=== PATIENT | female | born 1980 | race Caucasian/White ===

== ENCOUNTER 2016-11-24 14:44 | Emergency (ER) | payer OTHER ==
[2016-11-24 14:56] VITALS: BP 134/77
--- NOTE | 2016-11-24 16:26 | RAD ---
INDICATION: Persistent cough COMPARISON: November 29, 2013 TECHNIQUE: PA and lateral dual-energy views were obtained. FINDINGS: Bones/Soft Tissues: There are no acute bony findings. Cardiomediastinal: The cardiomediastinal silhouette is normal. Lungs: There are no infiltrates. Pleura: There are no pleural effusions. Other: None IMPRESSION: NORMAL CHEST.
--- NOTE | 2016-11-24 18:12 | UC ---
Respiratory Complaint HPI - HPI Summary HPI Summary: EIGHT WEEKS OF COUGH CONGESTION; NO FEVER - History of Current Complaint Chief Complaint: UCRespiratory Stated Complaint: COUGH Time Seen by Provider: 11/24/16 16:00 Hx Obtained From: Patient Hx Last Menstrual Period: 5 years, ablation Onset/Duration: Gradual Onset, Lasting Weeks, Still Present Timing: Intermittent Episodes Severity Initially: Mild Severity Currently: Mild Pain Intensity: 2 Character: Cough: Nonproductive Aggravating Factors: Allergens Alleviating Factors: Nothing Associated Signs And Symptoms: Positive: URI, Nasal Congestion. Negative: Fever , Chills, Dizziness, Calf Pain, Calf Swelling, Hoarseness, Sinus Discomfort - Risk Factors Pulmonary Embolism Risk Factors: Negative Pseudomonas Risk Factors: Negative Tuberculosis Risk Factors: Negative - Allergies/Home Medications Allergies/Adverse Reactions: Allergies Allergy/AdvReac Type Severity Reaction Status Date / Time No Known Allergies Allergy Verified 11/24/16 14:56 PMH/Surg Hx/FS Hx/Imm Hx Previously Healthy: Yes - Surgical History Surgical History: Yes Surgery Procedure, Year, and Place: , tubal ligation, uterine ablation - Family History Known Family History: Positive: Other - NONCONTRIBUTORY Negative: Hypertension, Diabetes - Social History Occupation: Employed Full-time Lives: With Family Alcohol Use: Rare Substance Use Type: None Smoking Status (MU): Heavy Every Day Tobacco Smoker Type: Cigarettes Amount Used/How Often: 1/2 ppd + Length of Time of Smoking/Using Tobacco: since 11 years old Have You Smoked in the Last Year: Yes Household Exposure Type: Cigarettes Cessation Counseling: Patient Advised to Stop - Immunization History Most Recent Influenza Vaccination: 2015/2016 Most Recent Pneumonia Vaccination: 2016 Review of Systems Constitutional: Negative Skin: Negative Eyes: Negative ENT: Nasal Discharge Respiratory: Cough Cardiovascular: Negative Gastrointestinal: Negative Genitourinary: Negative Motor: Negative Neurovascular: Negative Musculoskeletal: Negative Neurological: Negative Psychological: Negative All Other Systems Reviewed And Are Negative: Yes Physical Exam Triage Information Reviewed: Yes Appearance: No Pain Distress, Well-Nourished, Ill-Appearing Vital Signs: Initial Vital Signs Temp 98.9 F 11/24/16 14:55 Pulse 106 11/24/16 14:55 Resp 18 11/24/16 14:55 BP 134/77 11/24/16 14:55 Pulse Ox 99 11/24/16 14:55 Vital Signs Reviewed: Yes Eye Exam: Normal ENT: Positive: Hearing grossly normal, Pharynx normal, Nasal congestion, TM dull Dental Exam: Normal Neck exam: Normal Neck: Positive: Supple, Nontender, No Lymphadenopathy Respiratory Exam: Other - COUGH Respiratory: Positive: Chest non-tender, Lungs clear, Normal breath sounds, No respiratory distress Cardiovascular Exam: Normal Cardiovascular: Positive: RRR, No Murmur, Pulses Normal Abdominal Exam: Normal Musculoskeletal Exam: Normal Neurological Exam: Normal Psychological Exam: Normal Skin Exam: Normal UC Diagnostic Evaluation - Laboratory O2 Sat by Pulse Oximetry: 99 Respiratory Course/Dx - Differential Dx/Diagnosis Differential Diagnosis/HQI/PQRI: Bronchitis, Influenza, Sinusitis Provider Diagnoses: BRONCHITIS Discharge - Discharge Plan Condition: Stable Disposition: HOME Prescriptions: Benzonatate CAP* [Tessalon 100 MG CAP*] 100 mg PO TID #15 cap DOXYcycline CAP(*) [DOXYcycline 100MG CAP(*)] 100 mg PO BID #20 cap Patient Education Materials: Sinusitis (ED), Acute Bronchitis (ED) Forms: *Work Release Referrals: [facility]ERR[facility] [Outside] Navneet Lyon MD [Primary Care Provider] -
== END 2016-11-24 16:47 | disposition home or self-care (01) ==
LOC: UCEAST 14:44
DX: J40 Bronchitis, not specified as acute or chronic (principal); F17.210 Nicotine dependence, cigarettes, uncomplicated
CPT/HCPCS: 71020; 99212; G0463

== ENCOUNTER 2017-01-26 14:51 | Emergency (ER) | payer OTHER ==
[2017-01-26 15:23] VITALS: BP 90/71
[2017-01-26] MEDS ORDERED: Ibuprofen TAB* 600 MG PO ONE (16:06)
--- NOTE | 2017-01-26 16:23 | UC ---
Dental HPI - HPI Summary HPI Summary: 37 y/o female presents to the urgent care c/o left lower wisdom toothache since yesterday. Pt called dentist, but couldn't get an appt for today. Pt states her pain is 8/10 radiating to her LF ear with a TORO. she states she has a caries on that molar. Pt denies fever, SOB, chest pain , N/V/D - History of Current Complaint Chief Complaint: UCDentalProblem Stated Complaint: DENTAL COMPLAINT Time Seen by Provider: 01/26/17 16:06 Hx Obtained From: Patient Hx Last Menstrual Period: 5 years, ablation ?: No Onset/Duration: Gradual Onset, Lasting Days, Still Present Severity: Severe Pain Intensity: 9 Pain Scale Used: 0-10 Numeric Aggravating: Chewing Alleviating: OTC Meds Related History: Swelling - mild - Allergies/Home Medications Allergies/Adverse Reactions: Allergies Allergy/AdvReac Type Severity Reaction Status Date / Time No Known Allergies Allergy Verified 01/26/17 15:23 PMH/Surg Hx/FS Hx/Imm Hx Previously Healthy: Yes - Surgical History Surgical History: Yes Surgery Procedure, Year, and Place: , tubal ligation, uterine ablation - Family History Known Family History: Negative: Hypertension, Diabetes Family History: hypothyrodism - Social History Occupation: Employed Full-time Lives: With Family Alcohol Use: Rare Substance Use Type: None Smoking Status (MU): Heavy Every Day Tobacco Smoker Type: Cigarettes Amount Used/How Often: 1/2 ppd + Length of Time of Smoking/Using Tobacco: since 11 years old Have You Smoked in the Last Year: Yes Household Exposure Type: Cigarettes - Immunization History Most Recent Influenza Vaccination: 2015/2016 Most Recent Pneumonia Vaccination: 2016 Review of Systems Constitutional: Negative Skin: Negative Eyes: Negative ENT: Other - LF lower dental pain with a molar caries and left side facial swelling Respiratory: Negative Gastrointestinal: Negative Genitourinary: Negative Motor: Negative Neurovascular: Negative Musculoskeletal: Negative Neurological: Negative Psychological: Negative All Other Systems Reviewed And Are Negative: Yes Physical Exam Triage Information Reviewed: Yes Appearance: Well-Appearing, No Pain Distress, Well-Nourished, Thin Vital Signs: Initial Vital Signs Temp 99.9 F 01/26/17 15:20 Pulse 85 01/26/17 15:20 Resp 18 08/23/17 15:20 BP 90/71 01/26/17 15:20 Pulse Ox 99 01/26/17 15:20 Vital Signs Reviewed: Yes Eye Exam: Normal Eyes: Positive: Conjunctiva Clear - PERRLA, EOMI ENT: Positive: Normal ENT inspection, Hearing grossly normal, Pharynx normal, TMs normal, Other: - Poor dental hygiene. LF lower #17 molar with dental caries and yellowish drainage, percussion tenderness on that molar. LF sided submandibular swelling at the same level.LF anterior cervical lymphadenopaty tender and enlarged.. Negative: Tonsillar swelling, Tonsillar exudate Dental Complaint Course/Dx - Course Course Of Treatment: 37 y/o female presents to the urgent care c/o left lower wisdom toothache since yesterday. Pt called dentist, but couldn't get an appt for today. Pt states her pain is 8/10 radiating to her LF ear with a TORO. she states she has a caries on that molar. Pt denies fever, SOB, chest pain , N/V/ D. HX obtained. Pt given Ibuprofen 600mg PO at the clinic to alleviate pain and viscous lidocaine. Pt tolerated well medication. Pain decrese and Pt felt better. PE abnormal findings: Poor dental hygiene. LF lower #17 molar with dental caries and yellowish drainage, percussion tenderness on that molar. LF sided submandibular swelling at the same level.LF anterior cervical lymphadenopaty tender and enlarged. Pt Rx Amoxicillin PO and Naproxen PO to alleviate symptoms and advised to f/u with Dentist as soon as possible for further treatment. Pt understood and agreed - Differential Dx/Diagnosis Differential Diagnosis/Dx: Dental Abscess, Dental Caries, Gingivitis, Odontogenic Pain, Peridontic Disease, Pharyngitis, Tonsillitis Provider Diagnoses: 1- Dental abscess at the level of #17 molar with dental caries Discharge - Discharge Plan Condition: Stable Disposition: HOME Prescriptions: Amoxicillin PO (*) [Amoxicillin 875 MG (*)] 875 mg PO BID #20 tab Naproxen TAB* [Naprosyn 250 mg TAB*] 500 mg PO Q8H PRN #21 tab PRN Reason: Pain Patient Education Materials: Dental Abscess (ED) Referrals: Navneet Lyon MD [Primary Care Provider] - 2 Days Additional Instructions: 1-Please take full course of antibiotic to avoid resistance. 2- Take Naproxen as instructed after meals to alleviate pain and swelling. 3- F/u with your Dentist as soon as possible for further treatment. 4- If symptoms do not improve or worsen please return to the urgent care or f/u with your PCP for further evaluation and treatment
[2017-01-26] MEDS ORDERED: Lidocaine 2% VISCOUS* 15 ML UDC SWISH SPIT ONE ×2 (16:24→16:38)
== END 2017-01-26 16:48 | disposition home or self-care (01) ==
LOC: UCCORT 14:51
DX: K04.7 Periapical abscess without sinus (principal); K02.9 Dental caries, unspecified; F17.210 Nicotine dependence, cigarettes, uncomplicated
CPT/HCPCS: 99212; A9270-GY; G0463

== ENCOUNTER 2017-03-29 13:13 | Emergency (ER) | payer OTHER ==
[2017-03-29 13:53] LABS: Urine Bilirubin Negative (Negative); Urine Glucose Negative (Negative); Urine Nitrite Negative (Negative)
[2017-03-29 13:57] LABS: Hematocrit 40 % (35-47); Hemoglobin 13.7 g/dl (12.0-16.0); Mean Corpuscular HGB Conc 34 g/dl (31-36); Mean Corpuscular Hemoglobin 33 pg (27-31); Mean Corpuscular Volume 98 fL (80-97); Mean Platelet Volume 8 um3 (7.4-10.4); Red Blood Count 4.14 10^6/ul (4.0-5.4); Red Cell Distribution Width 12 % (10.5-15); White Blood Count 8.6 10^3/ul (3.5-10.8)
[2017-03-29 14:10] LABS: Benzodiazepine Urine Screen None Detected (None Detect)
[2017-03-29 14:12] LABS: ALT 11 U/L (7-52); AST 11 U/L (13-39); Albumin 4.4 g/dL (3.2-5.2); Alkaline Phosphatase 37 U/L (34-104); Anion Gap 5 mmol/L (2-11); Blood Urea Nitrogen 13 mg/dL (6-24); CO2 Carbon Dioxide 27 mmol/L (22-32); Calcium 9.5 mg/dL (8.6-10.3); Chloride 105 mmol/L (101-111); EGFR African American 87.2 (>60); EGFR Non-African American 67.8 (>60); Glucose 99 mg/dL (70-100); Potassium 3.5 mmol/L (3.5-5.0); Sodium 137 mmol/L (133-145); Total Protein 7.4 g/dL (6.4-8.9)
[2017-03-29 14:49] LABS: TSH (Thyroid Stimulating Horm) 1.89 mcIU/mL (0.34-5.60)
[2017-03-29 14:52] LABS: Acetaminophen < 15 mcg/mL; Alcohol < 10 mg/dL (<10); Salicylate < 2.50 mg/dL (<30)
[2017-03-29 16:12] VITALS: BP 109/64
[2017-03-29] MEDS ORDERED: Nicotine Inhaler* 10 MG AMP INH PRN (16:35)
[2017-03-29] MEDS ORDERED: Mouth Piece, Nicotine* 1 EACH CARTRIDGE INH PRN (16:35)
[2017-03-29] MEDS ORDERED: Mouth Piece, Nicotine* 1 EACH CARTRIDGE ONE (16:38)
[2017-03-29] MEDS ORDERED: Nicotine Inhaler* 10 MG AMP ONE (16:41)
--- NOTE | 2017-03-29 18:23 | ED ---
Geoffrey Beltran Benjamin, scribed for Chapincito Madera MD on 03/29/17 at 1331 . Psychiatric Complaint - HPI Summary HPI Summary: 37yo female sent from PCP for SI. Pt had her kids taken away 3 years ago and has been struggling since. Pt is not on any medications for depression. Pt admits prior attempt years ago, but denies attempts or plans this time. - History Of Current Complaint Chief Complaint: EDMentalHealth Time Seen by Provider: 03/29/17 13:21 Hx Obtained From: Patient Hx Last Menstrual Period: 5 years, ablation Onset/Duration: Gradual Onset, Lasting Days, Still Present Timing: Constant Severity Initially: Moderate Severity Currently: Moderate Character: Depressed Aggravating Factor(s): Recent Stress Alleviating Factor(s): Nothing Associated Signs And Symptoms: Positive: Negative Related History: Positive For: Prior Psychiatric Issues Has Suicidal: Reports: Thoughts. Denies: With A Plan Has Homicidal: Denies: Thoughts, With A Plan - Risk Factor(s) Completed Suicide Risk Factors: Past Suicide Attempt - Allergies/Home Medications Allergies/Adverse Reactions: Allergies Allergy/AdvReac Type Severity Reaction Status Date / Time No Known Allergies Allergy Verified 01/26/17 15:23 Home Medications: Home Medications NK [No Home Medications Reported] 03/29/17 [History Confirmed 03/29/17] PMH/Surg Hx/FS Hx/Imm Hx Endocrine/Hematology History: Denies: Hx Diabetes, Hx Sickle Cell Disease, Hx Thyroid Disease Cardiovascular History: Denies: Hx Congestive Heart Failure, Hx Hypertension, Other Cardiovascular Problems/Disorders Respiratory History: Denies: Hx Asthma, Hx Chronic Obstructive Pulmonary Disease (COPD), Other Respiratory Problems/Disorders GI History: Denies: Hx Ulcer, Other GI Disorders History: Reports: Hx Kidney Infection - IN THE PAST, Other Problems/ Disorders - FREQUENT UTI'S Denies: Hx Renal Disease Musculoskeletal History: Denies: Other Musculoskeletal History Sensory History: Denies: Hx Contacts or Glasses, Hx Hearing Aid Opthamlomology History: Denies: Hx Contacts or Glasses Neurological History: Reports: Hx Migraine - OCCASIONAL Denies: Other Neuro Impairments/Disorders - Surgical History Surgery Procedure, Year, and Place: , tubal ligation, uterine ablation Hx Anesthesia Reactions: No - Immunization History Date of Tetanus Vaccine: Unk Date of Influenza Vaccine: None Infectious Disease History: No Infectious Disease History: Denies: Hx Clostridium Difficile, Hx Hepatitis, Hx Human Immunodeficiency Virus (HIV), Hx of Known/Suspected MRSA, Hx Shingles, Hx Tuberculosis, Hx Known/ Suspected VRE, Hx Known/Suspected VRSA, History Other Infectious Disease, Traveled Outside the [place] in Last 30 Days - Family History Known Family History: Positive: Other - NONCONTRIBUTORY Negative: Hypertension, Diabetes Family History: hypothyrodism - Social History Lives: Alone Alcohol Use: Rare Substance Use Type: Reports: None Smoking Status (MU): Heavy Every Day Tobacco Smoker Type: Cigarettes Amount Used/How Often: 1/2 ppd + Length of Time of Smoking/Using Tobacco: since 11 years old Have You Smoked in the Last Year: Yes Review of Systems Constitutional: Negative Eyes: Negative ENT: Negative Cardiovascular: Negative Respiratory: Negative Gastrointestinal: Negative Genitourinary: Negative Musculoskeletal: Negative Skin: Negative Neurological: Negative Positive: Depressed All Other Systems Reviewed And Are Negative: Yes Physical Exam - Summary Physical Exam Summary: VITAL SIGNS: Reviewed. GENERAL: Patient is a well-developed and nourished female who is lying comfortable in the stretcher. Patient is not in any acute respiratory distress. HEAD AND FACE: No signs of trauma. No ecchymosis, hematomas or skull depressions. No sinus tenderness. EYES: PERRLA, EOMI x 2, No injected conjunctiva, no nystagmus. EARS: Hearing grossly intact. Ear canals and tympanic membranes are within normal limits. MOUTH: Oropharynx within normal limits. NECK: Supple, trachea is midline, no adenopathy, no JVD, no carotid bruit, no c- spine tenderness, neck with full ROM. CHEST: Symmetric, no tenderness at palpation LUNGS: Clear to auscultation bilaterally. No wheezing or crackles. CVS: Regular rate and rhythm, S1 and S2 present, no murmurs or gallops appreciated. ABDOMEN: Soft, non-tender. No signs of distention. No rebound no guarding, and no masses palpated. Bowel sounds are normal. EXTREMITIES: FROM in all major joints, no edema, no cyanosis or clubbing. NEURO: Alert and oriented x 3. No acute neurological deficits. Speech is normal and follows commands. SKIN: Dry and warm Depressed, quiet, and denies any suicidal thoughts or plan. Tearful. No homicidal thoughts or plan. No signs of psychosis or pressure speech. No tangential speech. Triage Information Reviewed: Yes Vital Signs On Initial Exam: Initial Vitals Temp Pulse Resp BP Pulse Ox 99.0 F 87 14 127/88 99 03/29/17 13:19 03/29/17 13:19 03/29/17 13:19 03/29/17 13:19 03/29/17 13:19 Vital Signs Reviewed: Yes - [place] Coma Scale Coma Scale Total: 15 Diagnostics - Vital Signs Vital Signs Temp Pulse Resp BP Pulse Ox 03/29/17 13:19 99.0 F 87 14 127/88 99 - Laboratory Lab Results: Lab Results 03/29/17 03/29/17 03/29/17 Range/Units 13:29 13:29 13:46 WBC (3.5-10.8) 10^3/ul RBC (4.0-5.4) 10^6/ul Hgb (12.0-16.0) g/dl Hct (35-47) % MCV (80-97) fL MCH (27-31) pg MCHC (31-36) g/dl RDW (10.5-15) % Plt Count (150-450) 10^3/ul MPV (7.4-10.4) um3 Neut % (Auto) (38-83) % Lymph % (Auto) (25-47) % [place] % (Auto) (1-9) % Eos % (Auto) (0-6) % Baso % (Auto) (0-2) % Absolute Neuts (auto) (1.5-7.7) 10^3/ul Absolute Lymphs (auto) (1.0-4.8) 10^3/ul Absolute Monos (auto) (0-0.8) 10^3/ul Absolute Eos (auto) (0-0.6) 10^3/ul Absolute Basos (auto) (0-0.2) 10^3/ul Absolute Nucleated RBC 10^3/ul Nucleated RBC % Sodium 137 (133-145) mmol/L Potassium 3.5 (3.5-5.0) mmol/L Chloride 105 (101-111) mmol/L Carbon Dioxide 27 (22-32) mmol/L Anion Gap 5 (2-11) mmol/L BUN 13 (6-24) mg/dL Creatinine 0.93 (0.51-0.95) mg/dL Est GFR ( Amer) 87.2 (>60) Est GFR (Non-Af Amer) 67.8 (>60) BUN/Creatinine Ratio 14.0 (8-20) Glucose 99 (70-100) mg/dL Calcium 9.5 (8.6-10.3) mg/dL Total Bilirubin 0.40 (0.2-1.0) mg/dL AST 11 L (13-39) U/L ALT 11 (7-52) U/L Alkaline Phosphatase 37 (34-104) U/L Total Protein 7.4 (6.4-8.9) g/dL Albumin 4.4 (3.2-5.2) g/dL Globulin 3.0 (2-4) g/dL Albumin/Globulin Ratio 1.5 (1-3) TSH 1.89 (0.34-5.60) mcIU/mL Urine Color Yellow Urine Appearance Clear Urine pH 6.0 (5-9) Ur Specific Merrick 1.013 (1.010-1.030) Urine Protein Negative (Negative) Urine Ketones Negative (Negative) Urine Blood Negative (Negative) Urine Nitrate Negative (Negative) Urine Bilirubin Negative (Negative) Urine Urobilinogen Negative (Negative) Ur Leukocyte Esterase Negative (Negative) Urine Glucose Negative (Negative) Salicylates < 2.50 (<30) mg/dL Urine Opiates Screen None detected (None Detect) Acetaminophen < 15 mcg/mL Ur Barbiturates Screen None detected (None Detect) Ur Phencyclidine Scrn None detected (None Detect) Ur Amphetamines Screen None detected (None Detect) U Benzodiazepines Scrn None detected (None Detect) Urine Cocaine Screen None detected (None Detect) U Cannabinoids Screen None detected (None Detect) Serum Alcohol < 10 (<10) mg/dL 03/29/ Range/Units 13:46 WBC 8.6 (3.5-10.8) 10^3/ul RBC 4.14 (4.0-5.4) 10^6/ul Hgb 13.7 (12.0-16.0) g/dl Hct 40 (35-47) % MCV 98 H (80-97) fL MCH 33 H (27-31) pg MCHC 34 (31-36) g/dl RDW 12 (10.5-15) % Plt Count 201 (150-450) 10^3/ul MPV 8 (7.4-10.4) um3 Neut % (Auto) 67.2 (38-83) % Lymph % (Auto) 24.9 L (25-47) % [place] % (Auto) 5.5 (1-9) % Eos % (Auto) 1.1 (0-6) % Baso % (Auto) 1.3 (0-2) % Absolute Neuts (auto) 5.7 (1.5-7.7) 10^3/ul Absolute Lymphs (auto) 2.1 (1.0-4.8) 10^3/ul Absolute Monos (auto) 0.5 (0-0.8) 10^3/ul Absolute Eos (auto) 0.1 (0-0.6) 10^3/ul Absolute Basos (auto) 0.1 (0-0.2) 10^3/ul Absolute Nucleated RBC 0 10^3/ul Nucleated RBC % 0 Sodium (133-145) mmol/L Potassium (3.5-5.0) mmol/L Chloride (101-111) mmol/L Carbon Dioxide (22-32) mmol/L Anion Gap (2-11) mmol/L BUN (6-24) mg/dL Creatinine (0.51-0.95) mg/dL Est GFR ( Amer) (>60) Est GFR (Non-Af Amer) (>60) BUN/Creatinine Ratio (8-20) Glucose (70-100) mg/dL Calcium (8.6-10.3) mg/dL Total Bilirubin (0.2-1.0) mg/dL AST (13-39) U/L ALT (7-52) U/L Alkaline Phosphatase (34-104) U/L Total Protein (6.4-8.9) g/dL Albumin (3.2-5.2) g/dL Globulin (2-4) g/dL Albumin/Globulin Ratio (1-3) TSH (0.34-5.60) mcIU/mL Urine Color Urine Appearance Urine pH (5-9) Ur Specific Merrick (1.010-1.030) Urine Protein (Negative) Urine Ketones (Negative) Urine Blood (Negative) Urine Nitrate (Negative) Urine Bilirubin (Negative) Urine Urobilinogen (Negative) Ur Leukocyte Esterase (Negative) Urine Glucose (Negative) Salicylates (<30) mg/dL Urine Opiates Screen (None Detect) Acetaminophen mcg/mL Ur Barbiturates Screen (None Detect) Ur Phencyclidine Scrn (None Detect) Ur Amphetamines Screen (None Detect) U Benzodiazepines Scrn (None Detect) Urine Cocaine Screen (None Detect) U Cannabinoids Screen (None Detect) Serum Alcohol (<10) mg/dL Result Diagrams: 03/29/17 13:46 03/29/17 13:46 Lab Statement: Any lab studies that have been ordered have been reviewed, and results considered in the medical decision making process. Course/Dx - Course Course Of Treatment: Pt is medically cleared for MHE at 1432 hour. Assessment/Plan: All blood work WNL. He is medically cleared. He is awaiting for a MHE. Patient is hemodynamically stable and A+O x 3. Sign to next ED Atending for further assestment. - Differential Dx/Clinical Impression Differential Diagnosis/HQI/PQRI: Positive: Anxiety, Depression, Suicidal Gesture Provider Diagnosis: Depression Discharge - Discharge Plan Condition: Stable Disposition: OTHER Discharge Disposition Comment: Signed out to shift change The documentation as recorded by the Geoffrey mckenzie Benjamin accurately reflects the service I personally performed and the decisions made by , Chapincito Madera MD.
--- NOTE | 2017-03-29 19:56 | ED ---
Progress - Progress Note Progress Note: pt cleared by mental health conservation officer, will be given insturctions for outpatient fu. - Consult/PCP Time Called: 15:00 Course/Dx - Course Course Of Treatment: Pt is medically cleared for MHE at 1432 hour. - Diagnoses Provider Diagnoses: Depression
== END 2017-03-29 20:25 | disposition home or self-care (01) ==
LOC: ED 13:13
DX: F32.9 Major depressive disorder, single episode, unspecified (principal)
CPT/HCPCS: 36415; 80053; 80307; 80320; 80329; 81003; 84443; 85025; 99283; A9270-GY; G0480

== ENCOUNTER 2017-03-30 14:43 | Emergency (ER) | payer OTHER ==
[2017-03-30 15:08] VITALS: BP 116/82
--- NOTE | 2017-03-30 16:08 | UC ---
Abdominal Pain Female HPI - HPI Summary HPI Summary: she has had similar abd pain for the past 3 years. she has not received any help or GI consultation. This past week it has been worse. She has diffuse lower abd pain and points to the periumbilical areas and lacey lower quadrants. She has had bloading and cramping as well but she has been eating well and has not had vomiting, diarrhea or blood in stool. no fever. No urinary or vaginal symptoms like discharge or pain with intercourse. - History of Current Complaint Chief Complaint: UCAbdominalPain Stated Complaint: STOMACH ACHE Time Seen by Provider: 03/30/17 15:48 Hx Obtained From: Patient Hx Last Menstrual Period: unknown, urterine ablation 5 years ago ?: No Onset/Duration: Gradual Onset, Lasting Weeks, Still Present Timing: Constant Severity Initially: Moderate Severity Currently: Moderate Location: Diffuse Radiates: No Character: Aching, Cramping Aggravating Factor(s): Other: - it was worse during a stressful job interview yesterday. Alleviating Factor(s): Nothing Associated Signs and Symptoms: Positive: Negative Allergies/Adverse Reactions: Allergies Allergy/AdvReac Type Severity Reaction Status Date / Time No Known Allergies Allergy Verified 03/30/17 15:08 PMH/Surg Hx/FS Hx/Imm Hx Previously Healthy: No - depression. - Surgical History Surgical History: Yes Surgery Procedure, Year, and Place: , tubal ligation, uterine ablation - Family History Known Family History: Positive: Other - NONCONTRIBUTORY Negative: Hypertension, Diabetes Family History: hypothyrodism - Social History Alcohol Use: None Substance Use Type: None Smoking Status (MU): Heavy Every Day Tobacco Smoker Type: Cigarettes Amount Used/How Often: 1/2 ppd + Length of Time of Smoking/Using Tobacco: since 11 years old Have You Smoked in the Last Year: Yes Household Exposure Type: Cigarettes - Immunization History Most Recent Influenza Vaccination: no Most Recent Pneumonia Vaccination: 2016 Review of Systems Gastrointestinal: Abdominal Pain All Other Systems Reviewed And Are Negative: Yes Physical Exam Triage Information Reviewed: Yes Appearance: Well-Appearing, No Pain Distress, Well-Nourished Vital Signs: Initial Vital Signs Temp 98 F 03/30/17 15:02 Pulse 87 03/30/17 15:02 Resp 16 03/30/17 15:02 BP 116/82 03/30/17 15:02 Pulse Ox 100 03/30/17 15:02 Vital Signs Reviewed: Yes Eyes: Positive: Conjunctiva Clear ENT: Positive: Normal ENT inspection, Pharynx normal. Negative: Trismus Neck exam: Normal Neck: Positive: Supple, Nontender, No Lymphadenopathy Respiratory Exam: Normal Respiratory: Positive: Chest non-tender, Lungs clear, Normal breath sounds, No respiratory distress, No accessory muscle use Cardiovascular Exam: Normal Cardiovascular: Positive: RRR, No Murmur, Pulses Normal, Brisk Capillary Refill Abdomen Description: Positive: No Organomegaly, Soft, Distended - periumbilical distension. there is diffuse tenderness of the lower abd and ruq. neg kelley's. No rebound., McBurney's Point Tenderness, Other: - neg psoas.. Negative: CVA Tenderness (R), CVA Tenderness (L), Peritoneal Signs Musculoskeletal Exam: Normal Musculoskeletal: Positive: Strength Intact, ROM Intact, No Edema Neurological Exam: Normal Neurological: Positive: Alert, Muscle Tone Normal Psychological Exam: Normal Skin: Negative: rashes Abd Pain Female Course/Dx - Course Course Of Treatment: this has been similar in pain and location as the prior 3 years. she believe is it is irriatable bowel and a lot ofthe features do seem consistent. This past week it has been worse but no worrisome signs such as fever, loss of appetite. the tenderness is diffuse. she agrees to return tomorrow if it worsens so that we may do a ct scan. She would like GI referral but wants to remain in [place] for this. - Differential Dx/Diagnosis Differential Diagnosis: Appendicitis, Bowel Obstruction, Diverticulitis, Irritable Bowel Syndrome, Pancreatitis, Pelvic Inflammatory Disease, Peptic Ulcer Disease, Pneumonia, Urinary Tract Infection Provider Diagnoses: abd pain. possible gi. Discharge - Discharge Plan Condition: Good Disposition: HOME Prescriptions: Dicyclomine CAP* [Bentyl CAP*] 10 mg PO TID PRN #20 cap PRN Reason: Pain Patient Education Materials: Abdominal Pain (ED), Chronic Abdominal Pain (ED) Referrals: Robert Kearney MD [Medical Doctor] - 1 Day Navneet Lyon MD [Primary Care Provider] - 1 Week Additional Instructions: return here immediately as we discussed for any worsening or new symptoms.
== END 2017-03-30 16:15 | disposition home or self-care (01) ==
LOC: UCCORT 14:43
DX: R10.30 Lower abdominal pain, unspecified (principal); Z32.02 Encounter for pregnancy test, result negative; F17.210 Nicotine dependence, cigarettes, uncomplicated
CPT/HCPCS: 81003; 84702; 99212; G0463

== ENCOUNTER 2017-05-28 14:46 | Emergency (ER) | payer OTHER ==
[2017-05-28 15:18] VITALS: BP 108/68
--- NOTE | 2017-05-28 15:24 | UC ---
Complaint Female HPI - HPI Summary HPI Summary: 37 year old female presents with foul smelling discharge. - History Of Current Complaint Chief Complaint: UCGU Stated Complaint: URINARY Time Seen by Provider: 05/28/17 15:23 Hx Obtained From: Patient Hx Last Menstrual Period: Unknown, uternine ablation Onset/Duration: Sudden Onset Timing: Constant Severity Initially: Moderate Severity Currently: Moderate - Allergies/Home Medications Allergies/Adverse Reactions: Allergies Allergy/AdvReac Type Severity Reaction Status Date / Time No Known Allergies Allergy Verified 05/28/17 15:18 Home Medications: Home Medications FLUoxetine CAP* [PROzac CAP*] 20 mg PO DAILY 05/28/17 [History Confirmed ] PMH/Surg Hx/FS Hx/Imm Hx Previously Healthy: Yes - Surgical History Surgical History: Yes Surgery Procedure, Year, and Place: , tubal ligation, uterine ablation - Family History Known Family History: Positive: Other - NONCONTRIBUTORY Negative: Hypertension, Diabetes Family History: hypothyrodism - Social History Alcohol Use: None Substance Use Type: None Smoking Status (MU): Heavy Every Day Tobacco Smoker Type: Cigarettes Amount Used/How Often: 1/2 ppd + Length of Time of Smoking/Using Tobacco: since 11 years old Have You Smoked in the Last Year: Yes Household Exposure Type: Cigarettes - Immunization History Most Recent Influenza Vaccination: no Most Recent Pneumonia Vaccination: 2016 Review of Systems Constitutional: Negative Skin: Negative Eyes: Negative ENT: Negative Respiratory: Negative Cardiovascular: Negative Gastrointestinal: Negative Genitourinary: Vaginal/Penile Discharge Motor: Negative Neurovascular: Negative Musculoskeletal: Negative Neurological: Negative Psychological: Negative All Other Systems Reviewed And Are Negative: Yes Physical Exam Triage Information Reviewed: Yes Vital Signs: Initial Vital Signs Temp 37.1 C 05/28/17 15:14 Pulse 98 05/28/17 15:14 Resp 16 05/28/17 15:14 BP 108/68 05/28/17 15:14 Pulse Ox 97 05/28/17 15:14 Vital Signs Reviewed: Yes Eye Exam: Normal ENT Exam: Normal ENT: Positive: Nasal drainage Dental Exam: Normal Neck exam: Normal Neck: Positive: 1 Respiratory Exam: Normal Cardiovascular Exam: Normal Abdominal Exam: Normal Musculoskeletal Exam: Normal Neurological Exam: Normal Psychological Exam: Normal Skin Exam: Normal Complaint Female Dx - Differential Dx/Diagnosis Provider Diagnoses: foul vaginal discharge Discharge - Discharge Plan Condition: Stable Disposition: HOME Prescriptions: Metronidazole [Flagyl 500 MG TAB] 500 mg PO BID #14 tab Sulfamethox/Trimethoprim DS* [Bactrim DS 800/160 TAB*] 1 tab PO BID #10 tab Patient Education Materials: Dysuria (ED), Vaginal Discharge (ED) Referrals: Ruiz Smith, [employer] [Primary Care Provider] -
--- NOTE | 2017-05-31 07:46 | UC ---
Progress - Progress Note Progress Note: Notify pt NO UTI she can STOP antibiotic(especially if she has already had 6 doses) and get rechecked if still symptomatic
== END 2017-05-28 15:48 | disposition home or self-care (01) ==
LOC: UCCORT 14:46
DX: N89.8 Other specified noninflammatory disorders of vagina (principal); Z72.0 Tobacco use
CPT/HCPCS: 81003; 87086; 99212; G0463

== ENCOUNTER 2018-01-26 11:49 | Emergency (ER) | payer OTHER ==
--- OUTSIDE RECORDS SUMMARY | 2018-01-26 11:58 | XMS REPORT ---
:1980 External Reference #:[id number] Author Organization [facility] Address [address] [place] [address] Phone [phone] Care Team Providers Name Role Phone Phil Lyon MD Primary Care Physician Unavailable Payers Type Date Identification Numbers Payment Provider Subscriber Commercial Effective: Policy Number: [id number] [facility] Rodriges 2008 Expires: 2014 PayID: [id number] [address] [address] [place] [address] Commercial Policy Number: [id number] [facility] Benita Rodriges PayID: [id number] [address] [address] [place] [address] Problems Date Description Provider Status Onset: 07/03/2012 Nonspecific abdominal symptom Jonnie Black M.D. Active Onset: 07/03/2012 Excessive and frequent menstruation Jonnie Black M.D. Active Onset: 09/13/2012 Wrist joint pain Active Family History Date Family Member(s) Problem(s) Comments General Endometriosis Father A&W Mother Diabetes Borderline Mother Graves Disease Mother Hypertension Number of Children 4 First Son A&W Second Son ADHD (Attention Deficit/Hyperactivity Disorder) Third Son A&W First Daughter A&W Number of Siblings Siblings: 2 First Brother A&W Second Brother A&W Paternal Grandfather A&W Paternal Grandmother due to Unknown Causes () Maternal Grandfather due to Heart Disease () Maternal Grandmother Heart Disease Maternal Grandmother Deep Vein Thrombosis Maternal Grandmother pacemaker Social History Type Date Description Comments Education Highest level of education completed is 10th grade Marital Status Patient is Living Situation Lives with spouse. Son is living with his father, moved to [place]. Has shared custody of daughter. 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 Cigarette Use Current cigarette smoker, has smoked 1/2 pack a day for the past 20 years Alcohol Denies alcohol use Smoking Patient is a current smoker, smokes every day Drug Use Denies drug use Daily Caffeine Drinks on average 5 cups of coffee a day Exercise Type/Frequency Current Exercises regularly Seat Belt/Car Seat Always uses a seat belt Currently Active The patient is currently sexually active Contraceptive Methods Current methods of control used include tubal ligation Allergies, Adverse Reactions, Alerts Date Description Reaction Status Severity Comments 11/28/2015 NKDA active 08/07/2008 NKDA inactive Medications Medication Date Status Form Strength Qnty SIG Indications Ordering Provider Ibuprofen 04/15 Active Tablets 600mg 30tab 1 tab by [id number] s mouth three Roxann times a day MD as needed Prozac Active 40mg Unknown / Dicyclomine Active Unknown HCL / Flagyl 02/16 Hx Tablets 500mg 14tab 1 by mouth Mahrie /2015 s two times Jacob, - per day x 7 CNM Hydrocodone-Ac 11/27 Hx Tablets 5-325mg 45tab 1 by mouth Jonnie Uriostegui etaminophen s every 4 Gelber, - hours as M.D. 03/03 Norethindrone 11/27 Hx Tablets 5mg 90tab 1 by mouth Jonnie Uriostegui Acetate s every day x2 Gelber, - weeks then M.D. 10/08 increase by 2.5 mg every 2 weeks to a dose of 15 mg / day Motrin 11/17 Hx Tablets 600mg 30tab Q6H prn For s Pain Repack - 11/27 No Active 06/10 Hx Unknown Medications /2015 - 06/10 Metrogel-Vagin 06/10 Hx Gel 0.75% 1TX 1 applicator N76.0 Obdulia every night Jump, - at bedtime x ANP-C 06/15 5 Lupron Depot 12/31 Hx Kit 3.75mg 3mos intramuscula Jonnie Uriostegui r every Gelber, - month,to M.D. 06/10 bring to office for injection Lupron Depot 12/31 Hx Kit 3.75mg 3mos intramuscula 617.1 Jonnie Uriostegui r every Gelber, - month,to M.D. 06/10 bring to office for injection Oxecta 12/13 Hx Taba 5mg 180ta 1-2 tabs by bs mouth q 6 - hours as 06/10 needed for pain Metronidazole 12/13 Hx Tablets 500mg 14tab 1 tab PO Bid s x 7 days - 06/10 Oxycodone HCL 12/12 Hx Tab ER 12H 20mg 60tab 1 tab q12 620.2 Unknown Abuse-Det s hours as - needed pian 06/10 Metrogel-Vagin 05/09 Hx Gel 0.75% 1TX 1 applicator Obdulia al every night Jump, - at bedtime x ANP-C 05/14 No Active 05/07 Hx Unknown Medications - 05/09 Metrogel-Vagin 03/05 Hx Gel 0.75% 1TX 1 applicator 616.10 Obdulia every night Jump, - at bedtime x ANP-C 03/09 Flagyl 12/31 Hx Tablets 500mg 14tab 1 by mouth Tori s twice a day Jagdeep, - x 7 days 01/07 Diflucan 12/19 Hx Tablets 150mg 2tabs take 1 tab. Jonnie A. now, if Wayne, - signs/sympto M.D. 12/26 ms not resolved in 72 hours, repeat dose No Active 05/01 Hx Dennise Medications /2012 Maximino, [employer] - 12/19 Diflucan 10/05 Hx Tablets 150mg 2tabs take 1 tab. Jonnie A. now, if Wayne, - signs/sympto M.D. 12/03 ms not resolved in 72 hours, repeat dose No Active 09/04 Hx Unknown Medications /2012 - 10/05 Percocet 07/03 Hx 5-325mg 20uni 1 po q 6hrs V72.83 Jonnie Uriostegui ts as needed Gelber, - for pain M.D. 08/04 Motrin 07/03 Hx Tablets 600mg 30tab take one V72.83 Jonnie A. s tablet q6h Gelber, - prn pain M.D. 08/04 Naproxen Ec 06/[address] 500mg 30tab 1 tab bid Jonnie A. s prn pain Gelber, - M.D. 05/17 Diflucan 02/15 Hx Tablets 150mg 1tabs 1 po times 1 Jonnie A. day, repeat Gelber, - in 3 days if M.D. 06/11 Loestrin 09/02 Hx Tablets 1-20mg-mc 1Pack 1 PO qd Jonnie A. 06/25- g Wayne, - M.D. 09/09 Fluconazole 06/21 Hx Tablets 150mg 2tabs 1 by mouth, Christy Zuñiga repeat in 3 Daniel, - days if CNM 07/06 Flintstones 06/21 Hx Chewtabs 2 by mouth Christy Zuñiga Gummies daily Daniel, - CNM 07/06 Amoxicillin 06/11 Hx Capsules 500mg 28cap po bid 10- Christy EЕлена s days Daniel, - CNM 07/06 Keflex 04/22 Hx Capsules 500mg 21cap 1 po tid Obdulia delvin Pedroza, - ANP-C 04/29 1 04/19 Hx Capsules 30-0.975- 90cap 1 po qd Jonnie A. 200mg s Wayne, - M.D. 06/30 Macrobid 12/03 Hx Capsules 100mg 6caps take one Melida M. capsule each Walsh, - morning and M.D. 01/03 each bedtime Flagyl 11/13 Hx Tablets 250mg 21tab 1 po tid Obdulia delvin Pedroza, - ANP-C 11/20 Ortho-Tri 11/05 Hx Tablets 3Pack 1 po qd Tori Cyclen Alexsander Mcclellan MD 04/19 Percocet 10/04 Hx 5-325mg 20uni 1 po q 6hrs V72.83 Jonnie A. ts as needed Gelber, - for pain M.D. 01/03 Motrin 10/04 Hx 600mg 30uni take one V72.83 Jonnie A. /2008 ts tablet q6h Gelber, - prn pain M.D. 04/19 Terazol 7 09/17 Hx Cream 0.4% 1unit 1 Obdulia s application Jump, - per vagina ANP-C 09/24 hs x Monistat 7 09/03 Hx Suppository 100mg Mumtaz /2008 Jair, - M.D. 09/17 Ferrous 08/20 Hx Tablets 325mg 100ta 1 po bid Maria Fernanda Sulfate bs Ricardo, - CNM 04/19 08/07 Hx Tablets 90tab 1 po qd Michela delvin Langford - [employer], [facility] 04/19 Monistat 3 08/07 Hx Cream 200mg/5GM 3appl one applicator Anastasiya - vaginally [employer], [facility] 01/03 at bedtime 3 nights Ibuprofen 00/00 Hx Unknown /0000 - 06/30 Junel 1.11/02 00/00 Hx Unknown /0000 - 10/11 Percocet 00/00 Hx Unknown /0000 - 06/10 Sulfamethoxazo Hx Tablets 800-160mg 10tab 1 po bid Jonnie ricci/Trimethopri /0000 ben Contreras - M.D. 06/10 Hydrocodone-Ac Hx Tablets 5-325mg Piyush Mathew etaminophen /0000 ry - 11/27 Immunizations CPT Code Status Date Vaccine Lot # [id number] Given 09/13/2012 Tetnus, Diptheria Toxoids And Acellular Pertussis, PT > 7Yrs Old [id number] Given 06/07/2011 Influenza Virus Vaccine 3Years Or Older Vital Signs Date Vital Result Comment 01/02/2018 BP Systolic 122 mmHg BP Diastolic 76 mmHg Height 65 inches 5'5" Weight 132.00 lb BMI (Body Mass Index) 22.0 kg/m2 5 Parity 4 11/08/2017 BP Systolic 118 mmHg BP Diastolic 72 mmHg Height 65 inches 5'5" Weight 133.00 lb BMI (Body Mass Index) 22.1 kg/m2 Last Menstrual Period [id number] 5 Parity 4 11/28/2015 BP Systolic 110 mmHg BP Diastolic 70 mmHg Height 65 inches 5'5" Weight 141.00 lb BMI (Body Mass Index) 23.5 kg/m2 Last Menstrual Period 9897182 5 Parity 4 11/18/2015 BP Systolic 100 mmHg BP Diastolic 76 mmHg Body Temperature 97.5 F Heart Rate 76 /min Respiratory Rate 16 /min Height 65 inches Weight 125.00 lb 10/01/2015 BP Systolic 116 mmHg BP Diastolic 78 mmHg Body Temperature 97.3 F Heart Rate 90 /min Weight 144.00 lb 07/01/2015 BP Systolic 112 mmHg BP Diastolic 70 mmHg Height 65.25 inches 5'5.25" Weight 140.00 lb BMI (Body Mass Index) 23.1 kg/m2 5 Parity 4 06/10/2015 BP Systolic 116 mmHg BP Diastolic 62 mmHg Height 65.25 inches 5'5.25" Weight 140.00 lb BMI (Body Mass Index) 23.1 kg/m2 Last Menstrual Period 9452903 5 Parity 4 04/15/2015 BP Systolic 118 mmHg BP Diastolic 66 mmHg Body Temperature 97.2 F Heart Rate 87 /min Weight 139.00 lb 01/20/2015 BP Systolic 102 mmHg BP Diastolic 62 mmHg Body Temperature 98.0 F Heart Rate 100 /min Weight 138.25 lb 12/31/2014 BP Systolic 124 mmHg BP Diastolic 82 mmHg Height 65.25 inches 5'5.25" Weight 137.00 lb BMI (Body Mass Index) 22.6 kg/m2 Last Menstrual Period 9133918 5 Parity 4 12/12/2014 BP Systolic 120 mmHg BP Diastolic 82 mmHg Body Temperature 97.7 F Heart Rate 115 /min Height 65.25 inches Weight 135.75 lb BMI (Body Mass Index) 22.4 kg/m2 10/16/2014 BP Systolic 110 mmHg BP Diastolic 64 mmHg Body Temperature 97.1 F Heart Rate 81 /min Height 65.25 inches Weight 133.00 lb BMI (Body Mass Index) 22.0 kg/m2 05/13/2014 BP Systolic 122 mmHg BP Diastolic 82 mmHg Height 65 inches 5'5" Weight 130.00 lb BMI (Body Mass Index) 21.6 kg/m2 Last Menstrual Period 6133128 5 Parity 4 05/07/2014 BP Systolic 108 mmHg BP Diastolic 64 mmHg Height 65 inches 5'5" Weight 130.00 lb BMI (Body Mass Index) 21.6 kg/m2 Last Menstrual Period 2463633 5 Parity 4 03/05/2014 BP Systolic 100 mmHg BP Diastolic 82 mmHg Height 65 inches 5'5" Weight 130.00 lb BMI (Body Mass Index) 21.6 kg/m2 Last Menstrual Period 5982678 5 Parity 4 12/19/2013 BP Systolic 126 mmHg BP Diastolic 66 mmHg Height 65 inches 5'5" Weight 128.00 lb BMI (Body Mass Index) 21.3 kg/m2 Last Menstrual Period 1887732 5 Parity 4 05/01/2013 BP Systolic 104 mmHg BP Diastolic 62 mmHg Height 65 inches 5'5" Weight 137.00 lb BMI (Body Mass Index) 22.8 kg/m2 5 Parity 4 12/25/2012 BP Systolic 104 mmHg BP Diastolic 68 mmHg Body Temperature 97.8 F Heart Rate 92 /min Weight 134.00 lb 10/05/2012 BP Systolic 110 mmHg BP Diastolic 62 mmHg Height 65 inches 5'5" Weight 137.00 lb BMI (Body Mass Index) 22.8 kg/m2 5 Parity 5 09/04/2012 BP Systolic 114 mmHg BP Diastolic 70 mmHg Body Temperature 98.1 F Height 65 inches 5'5" Weight 141.00 lb BMI (Body Mass Index) 23.5 kg/m2 5 Parity 5 07/03/2012 BP Systolic 108 mmHg BP Diastolic 62 mmHg Body Temperature 98.1 F Heart Rate 76 /min Respiratory Rate 18 /min Height 65 inches 5'5" Weight 140.00 lb BMI (Body Mass Index) 23.3 kg/m2 Last Menstrual Period 6074456 5 Parity 5 06/13/2012 BP Systolic 118 mmHg BP Diastolic 66 mmHg Weight 140.00 lb 5 Parity 5 03/30/2012 BP Systolic 108 mmHg BP Diastolic 70 mmHg Height 65 inches 5'5" Weight 130.00 lb BMI (Body Mass Index) 21.6 kg/m2 02/16/2012 BP Systolic 110 mmHg BP Diastolic 72 mmHg Height 65 inches 5'5" Weight 128.00 lb BMI (Body Mass Index) 21.3 kg/m2 Last Menstrual Period 5029566 5 Parity 5 10/12/2011 BP Systolic 110 mmHg BP Diastolic 72 mmHg Body Temperature 98.4 F Height 65 inches 5'5" Weight 136.00 lb BMI (Body Mass Index) 22.6 kg/m2 Last Menstrual Period 6028695 5 Parity 5 09/10/2011 BP Systolic 112 mmHg BP Diastolic 62 mmHg Body Temperature 98.4 F Height 65 inches 5'5" Weight 136.00 lb BMI (Body Mass Index) 22.6 kg/m2 Last Menstrual Period 2179133 5 Parity 4 04/19/2011 BP Systolic 102 mmHg BP Diastolic 58 mmHg Height 65 inches 5'5" Weight 144.00 lb BMI (Body Mass Index) 24.0 kg/m2 Last Menstrual Period 6564576 5 Parity 3 11/27/2008 BP Systolic 106 mmHg BP Diastolic 70 mmHg Height 65.5 inches 5'5.50" Weight 135.00 lb BMI (Body Mass Index) 22.1 kg/m2 Last Menstrual Period 0 Bleeding Since 5-7 Vag Of Son 11/13/2008 BP Systolic 114 mmHg BP Diastolic 62 mmHg Height 65.5 inches 5'5.50" Weight 140.00 lb BMI (Body Mass Index) 22.9 kg/m2 Last Menstrual Period 0 11/05/2008 BP Systolic 104 mmHg BP Diastolic 62 mmHg Height 65.5 inches 5'5.50" Weight 139.00 lb BMI (Body Mass Index) 22.8 kg/m2 10/04/2008 BP Systolic 100 mmHg BP Diastolic 66 mmHg Body Temperature 98.0 F Heart Rate 96 /min Respiratory Rate 16 /min Height 65.5 inches 5'5.50" Weight 159.00 lb BMI (Body Mass Index) 26.1 kg/m2 Last Menstrual Period 0 4 Parity 2 08/07/2008 BP Systolic 110 mmHg BP Diastolic 60 mmHg Height 64 inches 5'4" Weight 163.00 lb BMI (Body Mass Index) 28.0 kg/m2 Last Menstrual Period [id number] Results Test Date Test Result H/L Range Note Laboratory test 11/08/2017 Cytology SEE RESULT LGSIL.+HPV 1 finding BELOW Laboratory test 10/01/2015 Test neg finding Urine Ua Routine 10/01/2015 Ua Appera clear Ua Bilirubin neg Ua Color dark yellow Ua Glucose neg Ua Ketones neg Ua Nitrite neg Ua Occult Blood neg Ua PH 6 Ua Protein neg Ua Specific Brayton 1.015 Ua Urobilinogen neg Ua WBC neg Laboratory test finding 06/10/2015 Culture Genital & SEE RESULT BELOW 2 Sensitivity Urinalysis Profile 04/26/2015 Urine Appearance Cloudy Urine Bilirubin Negative Negative Urine Blood Negative Negative Urine Color Yellow Urine Glucose Negative Negative Urine Ketones 1+ Negative Urine Leukocytes Negative Negative Urine Nitrite Negative Negative Urine Protein Negative Negative Urine Specific Brayton 1.025 1.010-1.030 Urine Urobilinogen Negative Negative Urine pH 5.0 5-9 Laboratory test finding 04/26/2015 Albumin 4.3 g/dL 3.2-5.2 Albumin/Globulin Ratio 1.7 1-3 Alkaline Phosphatase 33 U/L Low 34-104 Alt 9 U/L 7-52 Anion Gap 8 mmol/L 2-11 Ast 11 U/L Low 13-39 BUN/Creatinine Ratio 13.2 8-20 Blood Urea Nitrogen 12 mg/dL 6-24 C Reactive Protein < 1.00 mg/L < 5.00 Calcium 9.0 mg/dL 8.6-10.3 Chloride 103 mmol/L 101-111 Co2 Carbon Dioxide 22 mmol/L 22-32 Creatinine 0.91 mg/dL 0.51-0.95 Egfr 90.5 >60 Egfr Non- 70.4 >60 Globulin 2.6 g/dL 2-4 Glucose 83 mg/dL 70-100 HCG Qualitative Negative Negative Lactic Acid 0.6 mmol/L 0.5-2.2 Lipase 9 U/L Low 11.0-82.0 3 Potassium 3.2 mmol/L Low 3.5-5.0 Sodium 133 mmol/L 133-145 4 Total Bilirubin 0.50 mg/dL 0.2-1.0 Total Protein 6.9 g/dL 6.4-8.9 CBC Auto Diff 04/26/2015 Abs Basophils 0.1 10^3/uL 0-0.2 Abs Eosinophils 0.1 10^3/uL 0-0.6 Abs Lymphocytes 2.7 10^3/uL 1.0-4.8 Abs Monocytes 0.3 10^3/uL 0-0.8 Abs Neutrophils 3.4 10^3/uL 1.5-7.7 Abs Nucleated RBC 0.01 10^3/uL Basophil % 1.3 % 0-2 Eosinophil % 2.0 % 0-6 Granulocyte % 51.1 % 38-83 Hematocrit 37 % 35-47 Hemoglobin 12.6 g/dL 12.0-16.0 Lymphocyte % 40.5 % 25-47 Mean Corpuscular HGB Conc 34 g/dL 31-36 Mean Corpuscular Hemoglobin 33 pg High 27-31 Mean Corpuscular Volume 98 fL High 80-97 Mean Platelet Volume 8 um3 7.4-10.4 Monocyte % 5.1 % 1-9 Nucleated Red Blood Cells % 0.1 Platelet Count 195 10^3/uL 150-450 Red Blood Count 3.78 10^6/uL Low 4.0-5.4 Red Cell Distribution Width 12 % 10.5-15 White Blood Count 6.6 10^3/uL 4.8-10.8 Urinalysis Profile 04/22/2015 Urine Appearance Clear Urine Bilirubin Negative Negative Urine Blood Negative Negative Urine Color Yellow Urine Glucose Negative Negative Urine Ketones Negative Negative Urine Leukocytes Negative Negative Urine Nitrite Negative Negative Urine Protein Negative Negative Urine Specific Brayton 1.013 1.010-1.030 Urine Urobilinogen Negative Negative Urine pH 7.0 5-9 Inr/Protime 04/22/2015 Inr 0.94 0.89-1.11 5 CBC Auto Diff 04/22/2015 Abs Basophils 0.1 10^3/uL 0-0.2 Abs Eosinophils 0.1 10^3/uL 0-0.6 Abs Lymphocytes 1.8 10^3/uL 1.0-4.8 Abs Monocytes 0.3 10^3/uL 0-0.8 Abs Neutrophils 1.7 10^3/uL 1.5-7.7 Abs Nucleated RBC 0.01 10^3/uL Basophil % 1.6 % 0-2 Eosinophil % 3.4 % 0-6 Granulocyte % 42.6 % 38-83 Hematocrit 38 % 35-47 Hemoglobin 12.6 g/dL 12.0-16.0 Lymphocyte % 44.8 % 25-47 Mean Corpuscular HGB Conc 34 g/dL 31-36 Mean Corpuscular Hemoglobin 33 pg High 27-31 Mean Corpuscular Volume 98 fL High 80-97 Mean Platelet Volume 9 um3 7.4-10.4 Monocyte % 7.6 % 1-9 Nucleated Red Blood Cells % 0.2 Platelet Count 201 10^3/uL 150-450 Red Blood Count 3.83 10^6/uL Low 4.0-5.4 Red Cell Distribution Width 13 % 10.5-15 White Blood Count 4.0 10^3/uL Low 4.8-10.8 Laboratory test finding 04/22/2015 Albumin 4.1 g/dL 3.2-5.2 Albumin/Globulin Ratio 1.5 1-3 Alkaline Phosphatase 34 U/L 34-104 Alt 14 U/L 7-52 Anion Gap 5 mmol/L 2-11 Ast 13 U/L 13-39 BUN/Creatinine Ratio 12.8 8-20 Blood Urea Nitrogen 12 mg/dL 6-24 C Reactive Protein < 1.00 mg/L < 5.00 6 Calcium 9.2 mg/dL 8.6-10.3 Chloride 108 mmol/L 101-111 Co2 Carbon Dioxide 25 mmol/L 22-32 Creatinine 0.94 mg/dL 0.51-0.95 Egfr 87.2 >60 Egfr Non- 67.8 >60 Globulin 2.7 g/dL 2-4 Glucose 96 mg/dL 70-100 HCG Qualitative Negative Negative Lactic Acid 0.7 mmol/L 0.5-2.2 Partial Thrombo Time PTT 32.4 s 26.0-36.3 Potassium 4.0 mmol/L 3.5-5.0 Sodium 138 mmol/L 133-145 7 Total Bilirubin 0.40 mg/dL 0.2-1.0 Total Protein 6.8 g/dL 6.4-8.9 Laboratory test 12/12/2014 Gardnerella/Yeast: Vaginal See Result Below 8 finding Dna Urine Culture And Sensitivities See Result Below 9 Urinalysis Profile 12/12/2014 Urine Appearance Cloudy Urine Bilirubin Negative Negative Urine Blood Negative Negative Urine Color Yellow Urine Glucose Negative Negative Urine Ketones Negative Negative Urine Leukocytes Negative Negative Urine Nitrite Negative Negative Urine Protein Negative Negative Urine Specific Brayton 1.023 1.010-1.030 Urine Urobilinogen Positive Negative Urine pH 6.0 5-9 Laboratory test finding 12/07/2014 Albumin 4.4 g/dL 3.2-5.2 Albumin/Globulin Ratio 1.6 1-3 Alkaline Phosphatase 36 U/L 34-104 Alt 33 U/L 7-52 Anion Gap 3 mmol/L 2-11 Ast 20 U/L 13-39 BUN/Creatinine Ratio 13.0 8-20 Blood Urea Nitrogen 12 mg/dL 6-24 C Reactive Protein < 1.00 mg/L < 5.00 10 Calcium 9.3 mg/dL 8.6-10.3 Chloride 106 mmol/L 101-111 Co2 Carbon Dioxide 27 mmol/L 22-32 Creatinine 0.92 mg/dL 0.51-0.95 Egfr 89.9 >60 11 Egfr Non- 69.9 >60 Globulin 2.7 g/dL 2-4 Glucose 92 mg/dL 70-100 Lactic Acid 0.5 mmol/L 0.5-2.2 Lipase 16 U/L 11.0-82.0 Partial Thrombo Time PTT 31.4 s 26.0-36.3 Potassium 3.8 mmol/L 3.5-5.0 Serum Negative Negative Sodium 136 mmol/L 133-145 Total Bilirubin 0.40 mg/dL 0.2-1.0 Total Protein 7.1 g/dL 6.4-8.9 Urine Culture And Sensitivities See Result Below 12 CBC Auto Diff 12/07/2014 Abs Basophils 0.1 10^3/uL 0-0.2 Abs Eosinophils 0.1 10^3/uL 0-0.6 Abs Lymphocytes 2.3 10^3/uL 1.0-4.8 Abs Monocytes 0.4 10^3/uL 0-0.8 Abs Neutrophils 4.4 10^3/uL 1.5-7.7 Abs Nucleated RBC 0 10^3/uL Basophil % 1.1 % 0-2 Eosinophil % 1.4 % 0-6 Granulocyte % 60.5 % 38-83 Hematocrit 41 % 35-47 Hemoglobin 13.4 g/dL 12.0-16.0 Lymphocyte % 32.0 % 25-47 Mean Corpuscular HGB Conc 33 g/dL 31-36 Mean Corpuscular Hemoglobin 33 pg High 27-31 Mean Corpuscular Volume 99 fL High 80-97 Mean Platelet Volume 8 um3 7.4-10.4 Monocyte % 5.0 % 1-9 Nucleated Red Blood Cells % 0 Platelet Count 217 10^3/uL 150-450 Red Blood Count 4.10 10^6/uL 4.0-5.4 Red Cell Distribution Width 12 % 10.5-15 White Blood Count 7.2 10^3/uL 4.8-10.8 Urinalysis Profile 12/07/2014 * * Negative 13 Urine Appearance Cloudy Urine Bacteria Absent Absent Urine Bilirubin 1+ Negative Urine Blood Negative Negative Urine Color Margo Urine Glucose Negative Negative Urine Ketones Trace Negative Urine Leukocytes Trace Negative Urine Nitrite Negative Negative Urine Protein 1+(30 mg/dL) Negative Urine Red Blood Cell 1+(3-5/hpf) Absent Urine Specific Brayton 1.036 High 1.010-1.030 Urine Squamous Epithelial Cell Present Absent Urine Urobilinogen Negative Negative Urine White Blood Cell Trace(0-5/hpf) Absent Urine pH 5.0 5-9 Ua Routine 10/16/2014 Ua Appera Clear Ua Bilirubin Neg Ua Color Yellow Ua Glucose Neg Ua Ketones Neg Ua Nitrite Neg Ua Occult Blood Neg Ua PH 5 Ua Protein Neg Ua Specific Brayton 1.0005 Ua Urobilinogen Neg Ua WBC Neg Laboratory test finding 09/28/2014 Albumin 4.5 g/dL 3.2-5.2 Albumin/Globulin Ratio 1.7 1-3 Alkaline Phosphatase 37 U/L 34-104 Alt 17 U/L 7-52 Anion Gap 3 mmol/L 2-11 Ast 17 U/L 13-39 BUN/Creatinine Ratio 14.3 8-20 Blood Urea Nitrogen 13 mg/dL 6-24 C Reactive Protein < 1.00 mg/L < 5.00 14 Calcium 9.5 mg/dL 8.6-10.3 Chloride 103 mmol/L 101-111 Co2 Carbon Dioxide 28 mmol/L 22-32 Creatinine 0.91 mg/dL 0.51-0.95 Egfr 91.0 >60 15 Egfr Non- 70.8 >60 Globulin 2.6 g/dL 2-4 Glucose 84 mg/dL 70-100 Lipase 8 U/L Low 11.0-82.0 Potassium 4.0 mmol/L 3.5-5.0 Sodium 134 mmol/L 133-145 Total Bilirubin 0.40 mg/dL 0.2-1.0 Total Protein 7.1 g/dL 6.4-8.9 CBC Auto Diff 09/28/2014 Abs Basophils 0.1 10^3/uL 0-0.2 Abs Eosinophils 0.1 10^3/uL 0-0.6 Abs Lymphocytes 2.0 10^3/uL 1.0-4.8 Abs Monocytes 0.3 10^3/uL 0-0.8 Abs Neutrophils 4.3 10^3/uL 1.5-7.7 Abs Nucleated RBC 0.01 10^3/uL Basophil % 1.0 % 0-2 Eosinophil % 1.3 % 0-6 Granulocyte % 62.9 % 38-83 Hematocrit 42 % 35-47 Hemoglobin 14.2 g/dL 12.0-16.0 Lymphocyte % 29.9 % 25-47 Mean Corpuscular HGB Conc 34 g/dL 31-36 Mean Corpuscular Hemoglobin 33 pg High 27-31 Mean Corpuscular Volume 97 fL 80-97 Mean Platelet Volume 8 um3 7.4-10.4 Monocyte % 4.9 % 1-9 Nucleated Red Blood Cells % 0.1 Platelet Count 199 10^3/uL 150-450 Red Blood Count 4.29 10^6/uL 4.0-5.4 Red Cell Distribution Width 12 % 10.5-15 White Blood Count 6.8 10^3/uL 4.8-10.8 Urinalysis Profile 09/28/2014 * * Negative 16 Urine Appearance Clear Urine Bacteria Absent Absent Urine Bilirubin Negative Negative Urine Blood Negative Negative Urine Color Margo Urine Glucose Negative Negative Urine Ketones Trace Negative Urine Leukocytes Trace Negative Urine Nitrite Negative Negative Urine Protein Negative Negative Urine Red Blood Cell Trace(0-2/hpf) Absent Urine Specific Brayton 1.026 1.010-1.030 Urine Squamous Epithelial Cell Present Absent Urine Urobilinogen Positive Negative Urine White Blood Cell Trace(0-5/hpf) Absent Urine pH 5.0 5-9 Urine Culture And 09/28/2014 Urine Culture (See Note) 17 Sensitivities GC/Chlamydia Dna Probe 05/07/2014 Chlamydia trachomatis Negative Negative Rna Neisseria gonorrhoeae (GC) Rna Negative Negative 18 Laboratory test finding 05/07/2014 Genital Culture (SEE NOTE) bv 19 Urine Culture And 05/01/2013 Urine Culture (SEE NOTE) 20 Sensitivities Human Papilloma Virus 10/06/2012 Human Papillomavirus Source See Comment 21 Human Papillomavirus High Risk Negative Negative 22 Laboratory test finding 10/05/2012 Cytology RUN DATE: <SEE NOTE> Laboratory test finding 07/11/2012 Surgical Pathology RUN DATE: <SEE NOTE> CBC Auto Diff 07/03/2012 White Blood Count 5.1 10^3/uL 4.8-10.8 Red Blood Count 4.03 10^6/uL 4.0-5.4 Hemoglobin 12.8 g/dL 12.0-16.0 Hematocrit 39 % 35-47 Mean Corpuscular Volume 97 fL 80-97 Mean Corpuscular Hemoglobin 32 pg High 27-31 Mean Corpuscular HGB Conc 33 g/dL 31-36 Red Cell Distribution Width 13 % 10.5-15 Platelet Count 198 10^3/uL 150-450 Mean Platelet Volume 9 um3 7.4-10.4 Abs Neutrophils 2.5 10^3/uL 1.5-7.7 Abs Lymphocytes 2.0 10^3/uL 1.0-4.8 Abs Monocytes 0.3 10^3/uL 0-0.8 Abs Eosinophils 0.2 10^3/uL 0-0.6 Abs Basophils 0.1 10^3/uL 0-0.2 Abs Nucleated RBC 0 10^3/uL Granulocyte % 49.6 % 38-83 Lymphocyte % 38.3 % 25-47 Monocyte % 6.6 % 1-9 Eosinophil % 3.9 % 0-6 Basophil % 1.6 % 0-2 Nucleated Red Blood Cells % 0 Type And Screen 07/03/2012 Patient Blood Type A Positive Antibody Screen NEGATIVE GC/Chlamydia Dna Probe 07/03/2012 GC/Chlamydia Rna (SEE NOTE) 25 Urine Culture And 06/13/2012 Urine Culture (SEE NOTE) 26 Sensitivities Laboratory test finding 06/13/2012 TSH (Thyroid 1.74 miu/mL 0.34-5.60 Stimulating Horm) Free T4 0.74 ng/mL 0.61-1.24 Total T3 1.35 ng/mL 0.5-1.7 (HCG) Urine 10/05/2011 Specific Brayton 1.026 1.010-1.030 Urine NEGATIVE Negative 27 Type & Screen 10/05/2011 Patient Blood Type A POSITIVE Antibody Screen NEGATIVE (HCG) Urine 09/28/2011 Specific Brayton 1.019 1.010-1.030 28 Urine NEGATIVE Negative 28, 29 Preadmit Type & Screen 09/28/2011 Patient Blood Type A POSITIVE 28 Antibody Screen NEGATIVE 28 Specimen Discard Date 10/01/11 28, 30 CBC Auto Diff 09/28/2011 White Blood Count 6.2 CUMM 4.8-10.8 28 Red Cell Count 3.78 CUMM Low 4.2-5.4 28 Hemoglobin 12.0 g/dL 12.0-16.0 28 Hematocrit 35 % 35-47 28 Mean Corpuscular Volume 93 um3 79-97 28 Mean Corpuscular Hemoglob 32 pg High 27-31 28 Mean Corpuscular HGB Cone 34 g/dL 32-36 28 Redcell Distribution WDTH 13 % 10.5-15 28 Platelet Count 285 CUMM 150-450 28 Mean Platelet Volume 8.5 um3 7.4-10.4 28 Manual Differential 09/28/2011 Polysegmented Neutrophil 40 % 38-83 28 Band Neutrophil 1 % 0-8 28 Lymphocyte 48 % High 25-47 28 Monocyte 9 % 0-13 28 Eosinophil 2 % 0-6 28 Absolute Neutrophil Count 2.50 28 RBC Morphology NORMAL 28 Manual Diff Comments (SEE NOTE) 28, 31 GC/Chlamydia Aptima 09/10/2011 M <SEE NOTE> 32 Urinalysis W/Microscopic 08/09/2011 Ua Color YELLOW Yellow Appearance-Urine CLEAR Clear Specific Brayton-Ur 1.019 1.010-1.030 Esterase-Urine NEGATIVE Negative Nitrite NEGATIVE Negative Zjrzrvsxzsls-Fi-TGX NEGATIVE Negative Protein-Urine NEGATIVE Negative PH-Urine 6.0 5-9 Blood-Urine NEGATIVE Negative Ketones-Urine NEGATIVE Negative Bilirubin-Ur NEGATIVE Negative Glucose-Urine NEGATIVE Negative WBC-Urine RARE 0-5 RBC-Urine NONE SEEN 0-2 Epith Cells-Ur FEW None Bacteria-Urine TRACE None Urine Culture & 06/07/2011 M <SEE 33 Sensitivi NOTE> Glucose 2HR 06/07/2011 Fasting Glucose 88 mg/dL 70-110 34 Tolerance (CMC) 1HR Glucose 130 mg/dL 34, 35 2HR Glucose 74 mg/dL 34, 36 Laboratory test finding 06/07/2011 Hepatitis B Surface Nonreactive Nonreactive 34 Ag Fasting Urine Glucose (SEE NOTE) Negative 34, 37 CBC No Diff 05/04/2011 White Blood Count 7.9 CUMM 4.8-10.8 Red Cell Count 3.33 CUMM Low 4.2-5.4 Hemoglobin 11.0 g/dL Low 12.0-16.0 Hematocrit 31 % Low 35-47 Mean Corpuscular Volume 94 um3 79-97 Mean Corpuscular Hemoglob 33 pg High 27-31 Mean Corpuscular HGB Cone 35 g/dL 32-36 Redcell Distribution WDTH 12 % 10.5-15 Platelet Count 230 CUMM 150-450 Mean Platelet Volume 7.9 um3 7.4-10.4 Comp Metabolic Panel 05/04/2011 Sodium 134 mmol/L Low 135-145 Potassium 3.3 mmol/L Low 3.5-5.0 Chloride 103 mmol/L 101-111 Co2 (Carbon Dioxide) 24.0 mmol/L 22-32 Anion Gap 7.0 mmol/L 2-11 38 Glucose 75 mg/dL 70-100 BUN 7 mg/dL 6-24 Creatinine 0.5 mg/dL Low 0.50-1.40 One Over Creatinine 2.00 BUN/Creatinine Ratio 14.0 8-20 Calcium 8.2 mg/dL 8.1-9.9 Total Protein 6.3 GM/DL 6.2-8.1 Albumin 2.8 GM/DL Low 3.6-5.4 Globulin 3.5 GM/DL 2-4 Albumin/Globulin Ratio 0.8 Low 1-3 Bilirubin Total 0.6 mg/dL 0.4-1.5 39 Alkaline Phosphatase 80 U/L 30-110 Alt (SGPT) 13 U/L Low 14-54 Ast (Sgot) 16 U/L 12-42 eGFR Non- 143.9 > 60 eGFR 185.1 > 60 40 Urinalysis W/Microscopic 05/04/2011 Ua Color MARGO Yellow Appearance-Urine CLEAR Clear Specific Brayton-Ur 1.024 1.010-1.030 Esterase-Urine 1+ Negative Nitrite NEGATIVE Negative Vaabpfvvxdzn-Qj-RNT NEGATIVE Negative Protein-Urine TRACE Negative PH-Urine 7.0 5-9 Blood-Urine NEGATIVE Negative Ketones-Urine NEGATIVE Negative Bilirubin-Ur SEE ICTOTEST Negative Glucose-Urine NEGATIVE Negative WBC-Urine 0-2 0-5 RBC-Urine 0-2 0-2 Epith Cells-Ur MANY None Bacteria-Urine 3+ None Laboratory test finding 05/04/2011 Ictotest POSITIVE 41 Urine Culture & Sensitivi 05/04/2011 M <SEE NOTE> 42 Laboratory test finding 04/19/2011 Cytology <SEE NOTE> normal 43 GC/Chlamydia Aptima 04/19/2011 M <SEE NOTE> 44 Urine Culture & Sensitivi 04/19/2011 M <SEE NOTE> 45 Urinalysis W/Microscopic 04/14/2011 Ua Color YELLOW Yellow Appearance-Urine CLEAR Clear Specific Brayton-Ur 1.022 1.010-1.030 Esterase-Urine NEGATIVE Negative Nitrite NEGATIVE Negative Biszuiogpnun-Ze-JGC NEGATIVE Negative Protein-Urine NEGATIVE Negative PH-Urine 6.5 5-9 Blood-Urine NEGATIVE Negative Ketones-Urine NEGATIVE Negative Bilirubin-Ur NEGATIVE Negative Glucose-Urine NEGATIVE Negative WBC-Urine 0-3 0-5 RBC-Urine NONE SEEN 0-2 Epith Cells-Ur MODERATE None Bacteria-Urine 1+ None Type & Screen 04/14/2011 Patient Blood Type A POSITIVE Antibody Screen NEGATIVE CBC With Manual Diff 04/14/2011 White Blood Count 11.0 CUMM High 4.8-10.8 Red Cell Count 3.40 CUMM Low 4.2-5.4 Hemoglobin 11.4 g/dL Low 12.0-16.0 Hematocrit 32 % Low 35-47 Mean Corpuscular Volume 94 um3 79-97 Mean Corpuscular Hemoglob 34 pg High 27-31 Mean Corpuscular HGB Cone 36 g/dL 32-36 Redcell Distribution WDTH 13 % 10.5-15 Platelet Count 230 CUMM 150-450 Mean Platelet Volume 7.9 um3 7.4-10.4 Polysegmented Neutrophil 81 % 38-83 Band Neutrophil 2 % 0-8 Lymphocyte 12 % Low 25-47 Monocyte 4 % 0-13 Eosinophil 1 % 0-6 Absolute Neutrophil Count 9.1 RBC Morphology NORMAL Laboratory test 04/14/2011 Rubella Screen IMMUNE Immune finding Urine Culture & 04/14/2011 Urine Culture NF1 46 Sensitivi Sensitivi Urine Drug SCR ED & 04/14/2011 Amphetamines Urine NONE DETECTED None Detect Pain Clinic Screen Barbituates Urine Screen NONE DETECTED None Detect Benzodiazepine Ur Screen NONE DETECTED None Detect Cannabinoid Urine Screen NONE DETECTED None Detect Cocaine Metabolites Urine NONE DETECTED None Detect Opiates Urine Screen NONE DETECTED None Detect PCP Urine Screen NONE DETECTED None Detect 47 Syphilis Screen 04/14/2011 Syphilis IgG TNP Nonreactive RPR NON-REACTIVE Nonreactive RPR Titer TNP Pediatric/Maternal YES Laboratory test 04/14/2011 Hepatitis B Nonreactive Nonreactive finding Surface AB Vad 04/14/2011 Vad Final NONREACTIVE Nonreactive 48 Laboratory test 09/23/2008 Rubella Screen (SEE NOTE) Immune 49 finding Laboratory test 09/17/2008 Genital For GRP B FINAL: NEGATIVE 50 finding Strep Only <SEE NOTE> Urine Culture & 09/17/2008 Urine Culture NG 51 Sensitivi Sensitivi Laboratory test 09/04/2008 Fungal Cult Other KAREN ALBICANS on terazol finding Sources GC/Chlamydia Dna 09/03/2008 GC By Aptima NEGATIVE Negative 52 Probe CHL By Aptima NEGATIVE Negative 53 Vad 09/03/2008 Vad Final NONREACTIVE Nonreactive 54 1 TS 09/03/2008 Patient Blood Type A POSITIVE Antibody Screen NEGATIVE 1 09/03/2008 White Blood Count 10.5 CUMM 4.8-10.8 Red Cell Count 3.49 CUMM Low 4.2-5.4 Hemoglobin 11.3 g/dL Low 12.0-16.0 Hematocrit 34 % Low 35-47 Mean Corpuscular Volume 97 um3 79-97 Mean Corpuscular Hemoglob 32 pg High 27-31 Mean Corpuscular HGB Cone 34 g/dL 32-36 Redcell Distribution WDTH 14 % 10.5-15 Platelet Count 287 CUMM 150-450 Mean Platelet Volume 7.9 um3 7.4-10.4 Comments (SEE NOTE) 55 RPR NON REACTIVE Nonreactive Hepatitis B Surface Ag NEGATIVE Negative Rubella Screen (SEE NOTE) Immune 56 Urine Culture & 08/07/2008 Urine Culture NG 57 Sensitivi Sensitivi Laboratory test finding 08/07/2008 TSH 1.39 MIU/ML 0.34-5.60 1 SEE RESULT BELOW Name: BENITA RODRIGES : [address]: Jonnie Black MD Acct: [id number] Unit: [id number] AGE: 37 Location: [facility] Re11/08/17 SEX: F Status: REG REF SPEC: [id number] KWABENA: 11/08/17-1312 [facility] DR: Jonnie Black MD REQ: [id number] RECD: 11/08/17-153 STATUS: SOUT _ ORDERED: TP IMAGE ANALYS, CIRCULAR KNITTER PHYS INTERP, HPV/Thin Prep COMMENTS: [id number] EPITHELIAL CELL ABNORMALITIES Low grade squamous intraepithelial lesion (LSIL) A. Ectocervical/Endocervical Specimen Adequacy: Satisfactory of evaluation Transformation zone component identified Patient Information: HPV: High risk HPV RNA testing regardless of pap results. Actual Specimen Date: 11/08/17 LMP If Unknown: 2012 Spec Date if unknown: 2012 Date Time Test Result Flag (u) Normal Range 11/08/17 1312 @ HPV RNA POSITIVE An Negative @ @ The high-risk HPV types detected by the assay include: 16, @ 18, 31, 33, 35, 39, 45, 51, 52, 56, 58, 59, 66, and 68. Signed by and Reported on: Ritchie Thompson MD 11/21 3778 This Pap test was evaluated with the assistance of the ThinPrep Test Imaging System. Due to cytologic findings at the senior data warehouse architect microscope, comprehensive manual rescreening by a Heel Lift Gouger may be required. The Pap Smear is a screening test designed to aid in the detection of premalignant and malignant conditions of the uterine cervix. It is not a diagnostic procedure and should not be used as the sole means of detecting cervical cancer. Both false- positive and false- negative reports do occur. Depending on your risk status, a Pap smear should be obtained and evaluated every 1-3 years. END OF REPORT DEPARTMENT OF PATHOLOGY, [address] [place] [address] Ritchie Thompson M.D. Director [facility] # [id number] 2 SEE RESULT BELOW Name: BENITA RODRIGES : [address]: Obdulia Pedroza CNP Acct: [id number] Unit: [id number] AGE: 35 Location: [facility] Re06/10/15 SEX: F Status: REG REF SPEC: [id number] KWABENA: 06/10/15-1318 [facility] [address]: Obdulia Pedroza [employer] REQ: [id number] RECD: 06/10/15 STATUS: COMP _ SOURCE: CERVIX SPDESC: ORDERED: Genital Culture Procedure Result Reported Site Genital Culture Final 06/12/151146 ML Organism 1 NORMAL KAYA Quantity 2+ * ML - MAIN LAB ([facility]) . END OF REPORT * ML=Testing performed at Main Lab DEPARTMENT OF PATHOLOGY, [address] [place] [address] Ritchie Thompson M.D. Director [facility] # [id number] 3 Acute inflammation: >10.00 4 Because ethnic data is not always readily available, this report includes an eGFR for both -Americans and non- Americans. The National Kidney Disease Education Program (NKDEP) does not endorse the use of the MDRD equation for patients that are not between the ages of 18 and 70, are , have extremes of body size, muscle mass, or nutritional status, or are non- or non-. According to the National Kidney Foundation, irrespective of diagnosis, the stage of the disease is based on the level of kidney function: Stage Description GFR(mL/min/1.73 m(2)) 1 Kidney damage with normal or decreased GFR 90 2 Kidney damage with mild decrease in GFR 60-89 3 Moderate decrease in GFR 30-59 4 Severe decrease in GFR 15-29 5 Kidney failure <15 (or dialysis) 5 Effective immediately, due to a laboratory mean normal Protime change, the reference range for the INR has changed. 6 Acute inflammation: >10.00 7 Because ethnic data is not always readily available, this report includes an eGFR for both -Americans and non- Americans. The National Kidney Disease Education Program (NKDEP) does not endorse the use of the MDRD equation for patients that are not between the ages of 18 and 70, are , have extremes of body size, muscle mass, or nutritional status, or are non- or non-. According to the National Kidney Foundation, irrespective of diagnosis, the stage of the disease is based on the level of kidney function: Stage Description GFR(mL/min/1.73 m(2)) 1 Kidney damage with normal or decreased GFR 90 2 Kidney damage with mild decrease in GFR 60-89 3 Moderate decrease in GFR 30-59 4 Severe decrease in GFR 15-29 5 Kidney failure <15 (or dialysis) 8 SEE RESULT BELOW Name: BENITA ROMANO : [address]: Roby Tobias NP Acct: [id number] Unit: [id number] AGE: 34 Location: [facility] Re12/12/14 SEX: F Status: REG REF SPEC: [id number] KWABENA: 12/12/14-1201 [facility] DR: Roby Tobias NP REQ: [id number] RECD: 12/12/14 STATUS: COMP _ SOURCE: VAGINAL SPDESC: ORDERED: Hal,Yeast DNA , Trich DNA Procedure Result Verified Site Gardnerella/Yeast: Vaginal DNA Final 12/13/14-1107 ML Organism 1 Negative Karen Organism 2 POSITIVE GARDNERELLA The presence of G. vaginalis, although suggestive, is not diagnostic for bacterial vaginosis. Results should be interpreted in conjuction with other clinical and laboratory data available. Women with vaginal discharge should be evaluated for risk factors of cervicitis and pelvic inflammatory disease, toxic shock syndrome (S.aureus ), and if present, evaluated for organisms not included in this assay such as N. gonorrhoeae, C. trachomatis, Mobiluncus, Mycoplasma and/or Prevotella. Mixed infections may occur. The performance of this test on patient specimens collected during or immediately after antimicrobial therapy is unknown. The presence or absence of Karen species , or G. vaginalis cannot be used as a test for therapeutic success or failure. Trichomonas: Vaginal DNA Probe Final 12/13/14-1107 ML Organism 1 Negative Trichomonas CONTINUED ON NEXT PAGE * ML=Testing performed at Main Lab DEPARTMENT OF PATHOLOGY, [address] [place] [address] Ritchie Thompson M.D. Director [facility] # [id number] Patient: CMMILADBENITA [id number] (Continued) Specimen: [id number] Collected: 12/12/14 Received: 12/12/14-1643 ( Continued) Procedure Result Verified Site Trichomonas: Vaginal DNA Probe Final (continued) 12/13/14-110 The presence or absence of T. vaginalis cannot be used as a test for therapeutic success or failure. * ML - MAIN LAB ([facility]) . END OF REPORT * ML=Testing performed at Main Lab DEPARTMENT OF PATHOLOGY, [address] [place] [address] Ritchie Thompson M.D. Director [facility] # [id number] 9 SEE RESULT BELOW Name: BENITA ROMANO : [address]: Roby Tobias NP Acct: [id number] Unit: [id number] AGE: 34 Location: [facility] Re12/12/14 SEX: F Status: REG REF SPEC: [id number] KWABEAN: 12/12/14-[address]: Roby Tobias NP REQ: [id number] RECD: 07/09/15-1644 STATUS: COMP _ SOURCE: URINE SPDESC: ORDERED: Urine Culture Procedure Result Verified Site Urine Culture Final 12/14/14-1048 ML No Growth Day 2 (<1,000 CFU/mL) * ML - MAIN LAB ([facility]) . END OF REPORT * ML=Testing performed at Main Lab DEPARTMENT OF PATHOLOGY, [address] [place] [address] Ritchie Thompson M.D. Director [facility] # [id number] 10 Acute inflammation: >10.00 11 Because ethnic data is not always readily available, this report includes an eGFR for both -Americans and non- Americans. The National Kidney Disease Education Program (NKDEP) does not endorse the use of the MDRD equation for patients that are not between the ages of 18 and 70, are , have extremes of body size, muscle mass, or nutritional status, or are non- or non-. According to the National Kidney Foundation, irrespective of diagnosis, the stage of the disease is based on the level of kidney function: Stage Description GFR(mL/min/1.73 m(2)) 1 Kidney damage with normal or decreased GFR 90 2 Kidney damage with mild decrease in GFR 60-89 3 Moderate decrease in GFR 30-59 4 Severe decrease in GFR 15-29 5 Kidney failure <15 (or dialysis) 12 SEE RESULT BELOW Name: BENITA ROMANO : [address]: Mal Vogel MD Acct: [id number] Unit: [id number] AGE: 34 Location: ED Re12/07/14 SEX: F Status: DEP ER SPEC: [id number] KWABENA: 12/07/14-4605 [facility] DR: Mal Vogel MD REQ: [id number] RECD: 12/07/141168 STATUS: VINAY BUSTAMANTE DR: Navneet Lyon MD _ SOURCE: URINE SPDESC: ORDERED: Urine Culture Procedure Result Verified Site Urine Culture Final 12/09/14-1011 ML Organism 1 NORMAL KAYA Stoddard Count 10- 25,000 (Moderate) CFU/ML * ML - MAIN LAB ([facility]) . END OF REPORT * ML=Testing performed at Main Lab DEPARTMENT OF PATHOLOGY, [address] [place] [address] Ritchie Thompson M.D. Director [facility] # [id number] 13 *Ascorbic acid is present which may interfere with detection of blood. 14 Acute inflammation: >10.00 15 Because ethnic data is not always readily available, this report includes an eGFR for both -Americans and non- Americans. The National Kidney Disease Education Program (NKDEP) does not endorse the use of the MDRD equation for patients that are not between the ages of 18 and 70, are , have extremes of body size, muscle mass, or nutritional status, or are non- or non-. According to the National Kidney Foundation, irrespective of diagnosis, the stage of the disease is based on the level of kidney function: Stage Description GFR(mL/min/1.73 m(2)) 1 Kidney damage with normal or decreased GFR 90 2 Kidney damage with mild decrease in GFR 60-89 3 Moderate decrease in GFR 30-59 4 Severe decrease in GFR 15-29 5 Kidney failure <15 (or dialysis) 16 *Ascorbic acid is present which may interfere with detection of blood. 17 RUN DATE: 09/30/14 [facility] LAB LIVE PAGE 1 RUN TIME: 120[address] [place], [place] [address] Specimen Inquiry Name: BENITA ROMANO : [address]: Saran Farias DO Acct: [id number] Unit: [id number] AGE: 34 Location: ED Re09/28/14 SEX: F Status: DEP ER SPEC: [id number] KWABENA: 09/28/14-1315 [facility] [address]: Phil CARTER REQ: [id number] RECD: 09/28/14659 STATUS: VINAY BUSTAMANTE DR: [facility] Navneet Lyon MD _ SOURCE: URINE SPDESC: ORDERED: Urine Culture Procedure Result Verified Site Urine Culture Final 09/30/14-1209 ML No Growth Day 2 (<1,000 CFU/mL) * ML - MAIN LAB ([facility]) . END OF REPORT * ML=Testing performed at Main Lab DEPARTMENT OF PATHOLOGY, [facility] [employer] [place], [place] [address] Ritchie Thompson M.D. Director [facility] # [id number] 18 Female urine specimens have been self-validated by [facility] and have been granted conditional assay approval by [facility]. 19 RUN DATE: 05/09/14 [facility] LAB LIVE PAGE 1 RUN TIME: 1446 [facility] [employer] [place], [place] [address] Specimen Inquiry Name: BENITA ROMANO : [address]: Obdulia Pedroza CNP Acct: [id number] Unit: [id number] AGE: 34 Location: [facility] Re05/07/14 SEX: F Status: REG REF SPEC: [id number] KWABENA: 05/07/14-7 [facility] [address]: Obdulia Pedroza CNP REQ: [id number] RECD: 05/07/14 STATUS: COMP _ SOURCE: CERVIX SPDESC: ORDERED: Genital Culture QUERIES: Medent Number [id number] Procedure Result Verified Site Genital Culture Final 05/09/14- 1446 ML Organism 1 HAL VAGINALIS - PRESUMPTIVE Quantity 3+ Organism 2 NORMAL KAYA Quantity 2+ END OF REPORT * ML=Testing performed at Main Lab DEPARTMENT OF PATHOLOGY, [address] [place] [address] Ritchie Thompson M.D. Director [facility] # [id number] 20 RUN DATE: 05/03/13 [facility] LAB LIVE PAGE 1 RUN TIME: [address] [place] [address] Specimen Inquiry Name: BENITA ROMANO COLIN : [address]: Dennise Stanton NP Acct: [id number] Unit: [id number] AGE: 33 Location: [facility] Re05/01/13 SEX: F Status: REG REF SPEC: [id number] KWABENA: 05/01/13-[address]: Dennise Stanton NP REQ: [id number] RECD: 05/01/13 STATUS: COMP _ SOURCE: URINE SPDESC: ORDERED: Urine Culture QUERIES: Medent Number [id number] Procedure Result Verified Site Urine Culture Final 05/03/13- 0939 ML Organism 1 NORMAL KAYA Stoddard Count 75-100,000 (Many) CFU/ML END OF REPORT * ML=Testing performed at Main Lab DEPARTMENT OF PATHOLOGY, [facility] [employer] [place] [address] Ritchie Thompson M.D. Director [facility] Permit #[id number] RESULT: Ectocervical/Endocervical 22 For types 16, 18, 31, 33, 35, 39, 45, 51, 52, 56, 58, 59 and 68. Test Performed by: [address] [address] Laboratory Asst: Jean-Pierre Aguayo III, M.D. 23 RUN DATE: 10/06/12 [facility] LAB LIVE PAGE 1 RUN TIME: 1526 [facility] [place], [place] [address] Specimen Inquiry Name: BENITA ROMANO : [address]: Dennise Stanton NP Acct: [id number] Unit: [id number] AGE: 32 Location: [facility] Re10/05/12 SEX: F Status: REG REF SPEC: [id number] KWABENA: 10/05/12-1132 [facility] DR: Dennise Stanton NP REQ: [id number] RECD: 10/05/12-1700 STATUS: SOUT _ ORDERED: IMAGE ANALYSIS, HPV / Thin Prep FINAL DIAGNOSIS Negative for Intraepithelial lesion or Malignancy COMMENTS: Specimen sent to [facility] in [place], [place] on 10/06/12 by [id number] at 1257. Results will be reported separately. A. Ectocervical/Endocervical Specimen Adequacy: Satisfactory of evaluation Transformation zone component identified Patient Information: HPV: High risk HPV DNA testing regardless of pap results. Actual Specimen Date: 10/05/12 LMP If Unknown: 07/2011 Date of Last Specimen: 04/19/11 ?: N Post Menopausal?: N Hysterectomy?: N Previous Abnormal Pap Smears?:N Other Pertinent History: 07/2011 ablation Signed (signature on file) GINA Sotelo (ASCP) 10/06 1527 This Pap test was evaluated with the assistance of the ThinPrep Test Imaging System. Due to cytologic findings at the senior data warehouse architect microscope, comprehensive manual rescreening by a Heel Lift Gouger may be required. The Pap Smear is a screening test designed to aid in the detection of premalignant and malignant conditions of the uterine cervix. It is not a diagnostic procedure and should not be used as the sole means of detecting cervical cancer. Both false- positive and false- negative reports do occur. Depending on your risk status, a Pap smear shoudl be obtained and evaluated every 1-3 years. END OF REPORT * ML=Testing performed at Main Lab DEPARTMENT OF PATHOLOGY, [facility] [employer] [place], [place] [address] Ritchie Thompson M.D. Director [facility] Permit #[id number] 24 RUN DATE: 07/12/12 [facility] LAB LIVE PAGE 1 RUN TIME: 1333 [facility] [place], [place] [address] Specimen Inquiry Name: BENITA ROMANO : [address]: Jonnie Black MD Acct: [id number] Unit: [id number] AGE: 32 Location: [place] Re07/11/12 SEX: F Status: REG [facility] SPEC: [id number] KWABENA: 07/11/12- [facility] DR: Jonnie Black MD REQ: [id number] RECD: 07/11/12 STATUS: SOUT _ ORDERED: LEVEL IV FINAL DIAGNOSIS Uterus, endometrium, biopsy: 1) Secretory endometrium. 2) No evidence of hyperplasia or neoplasia identified. CLINICAL HISTORY No history given. GROSS DESCRIPTION The specimen is received in formalin labeled Benita Romano, Endometrial Curettings and consists of multiple, dominguez-pink, soft tissue fragments measuring 2.5 x 2.5 x 0.7 cm. Submitted entirely, one cassette. Signed (signature on file) Ritchie Thompson MD 1333 END OF REPORT * ML=Testing performed at Main Lab DEPARTMENT OF PATHOLOGY, [facility] [employer] [place] [address] Ritchie Thompson M.D. Director [facility] Permit #[id number] 25 RUN DATE: 07/04/12 [facility] LAB LIVE PAGE 1 RUN TIME: 1411 [facility] [employer] [place], [place] [address] Specimen Inquiry Name: BENITA ROMANO : [address]: Jonnie Black MD Acct: [id number] Unit: [id number] AGE: 32 Location: [facility] Re07/03/12 SEX: F Status: REG REF SPEC: [id number] KWABENA: 07/03/[address]: Jonnie Black MD REQ: [id number] RECD: 07/03/12 STATUS: COMP _ S[facility] ORDERED: GC/Chlam RNA QUERIES: Medent Number [id number] Procedure Result Verified Site Chlamydia Trachomatis RNA Final 07/04/12- 1411 ML NEGATIVE for Chlamydia trachomatis rRNA GC (N. gonorrhoeae) RNA Final 07/04/12- 1410 ML NEGATIVE for Neisseria gonorrhoeae rRNA A negative result does not preclude the presence of a C. trachomatis or N. gonorrhoeae infection because results are dependent on adequate specimen collection, absence of inhibitors, and sufficient rRNA to be detected. Test results may be affected by improper specimen collection, improper storage, technical error, or specimen mixup. Limitations of the Procedure: The Aptima Combo 2 Assay is not intended for the evaluation of suspected sexual abuse or for other medico-legal indications. For those patients for whom a false positive result may have adverse psychosocial impact, the CDC recommends retesting by a method using an alternate technology. Therapeutic failure or success cannot be determined with the Aptima Combo 2 Assay since nucleic acid may persist following appropriate antimicrobial therapy. Results from the Aptima Combo 2 Assay should be interpreted in conjunction with other laboratory and clinical data available to the clinican. CONTINUED ON NEXT PAGE * ML=Testing performed at Main Lab DEPARTMENT OF PATHOLOGY, [facility] [employer] [place] [id number] Ritchie Thompson M.D. Director [facility] Permit #[id number] RUN DATE: 07/04/12 [facility] LAB LIVE PAGE 2 RUN TIME: 1411 [facility] [place], [place] [address] Specimen Inquiry Patient: JUAN ANTONIOBENITA [id number] (Continued) Specimen: [id number] Collected: 07/03/12 Received: 07/03/12-161 (Continued) Procedure Result Verified Site GC (N. gonorrhoeae) RNA Final (continued) 07/04/12- 1410 Performance characteristics for detecting C. trachomatis and N. gonorrhoeae are derived from high prevalence populations. Positive results in low prevalence populations should be interpreted carefully with the understanding that the likelihood of a false positive may be higher than a true positive. END OF REPORT * ML=Testing performed at Main Lab DEPARTMENT OF PATHOLOGY, [facility] [employer] [place] [address] Ritchie Thompson M.D. Director [facility] Permit #[id number] RUN DATE: 06/15/12 [facility] LAB LIVE PAGE 1 RUN TIME: 1043 [facility] [employer] [place], [place] [address] Specimen Inquiry Name: BENITA ROMANO COLIN : [address]: Dennise Stanton NP Acct: [id number] Unit: [id number] AGE: 32 Location: [facility] Re06/13/12 SEX: F Status: REG REF SPEC: [id number] KWABENA: 06/13/[address]: Maximino PENN,Dennise REQ: [id number] RECD: 06/13/12 STATUS: COMP _ SOURCE: URINE SPDESC: ORDERED: Urine Culture QUERIES: Medent Number [id number] Procedure Result Verified Site Urine Culture Final 06/15/12- 1043 ML Organism 1 NORMAL KAYA Stoddard Count >100,000 (Many) CFU/ML END OF REPORT * ML=Testing performed at Main Lab DEPARTMENT OF PATHOLOGY, [address] [place] [address] Ritchie Thompson M.D. Director [place] Permit #[id number] If is still suspected, please repeat test after 48 to 72 hours. . This test detects intact HCG only and is indicated for the early detection of . 28 SDS 10/05/11 29 If is still suspected, please repeat test after 48 to 72 hours. . This test detects intact HCG only and is indicated for the early detection of . 30 PREADMISSION TESTING SAMPLES FOR BLOOD BANK WILL BE HELD FOR 14 DAYS FROM THE DATE OF COLLECTION *IF* THE FOLLOWING CRITERIA ARE MET: 1) THE PATIENT HAS *NOT* BEEN IN THE LAST 3 MONTHS. 2) THE PATIENT HAS *NOT* BEEN TRANSFUSED IN THE LAST 3 MONTHS. PREADMISSION TESTING SAMPLES WILL *NOT* BE HELD FOR 14 DAYS FROM PATIENTS WHO IN THE LAST 3 MONTHS: 1) HAVE BEEN 2) HAVE BEEN TRANSFUSED THESE PATIENTS *MUST* BE COLLECTED WITHIN 3 DAYS OF THE SURGERY DATE. 31 CBC and smear reviewed. Inverted PMN/lymph ratio noted. No blasts seen. REVIEWED BY RITCHIE THOMPSON MD 32 RUN DATE: 09/14/11 [facility] NMI LIVE PAGE 1 RUN TIME: 1420 Specimen Inquiry RUN USER: INTERFACE Name: BENITA ROMANO Status: REG REF Re09/10/11 Age/Sex: 31/F Unit#: [id number] Location: [facility] : [birth year] SPEC #: [id number] KWABENA: 09/10/11 STATUS: COMP REQ #: [id number] RECD: 09/10/[address]: Tori Gannon MD SOURCE: ENDOCERVIX ENTR: 09/10/[address]: JULIAC: ORDERED: GC/CHL APTIMA QUERIES: MEDENT REQUISITION # [id number] ACT WKST: GCCHL 09/14/11 #1 Procedure Result Verified Site > CHLAMYDIA TRACHOMATIS RNA Final 09/14/11- 1420 ML NEGATIVE FOR CHLAMYDIA TRACHOMATIS rRNA A negative result does not preclude the presence of a C.trachomatis or N.gonorrhoeae infection because results are dependent on adequate specimen collection, absence of inhibitors, and sufficient rRNA to be detected. Test results may be affected by improper specimen collection, improper specimen storage, technical error, or specimen mixup. Limitations of the Procedure: The Aptima Combo 2 Assay is not intended for the evaluation of suspected sexual abuse or for other medico-legal indications. For those patients for whom a false positive result may have adverse psychosocial impact, the CDC recommends retesting by a method using an alternate technology. Therapeutic failure or success cannot be determined with the Aptima Combo 2 Assay since nucleic acid may persist following appropriate antimicrobial therapy. Results from the APTIMA Combo 2 Assay should be interpreted in conjunction with other laboraotry and clinical data available to the clinician. Performance characteristics for detecting C. trachomatis and N. gonorrhoeae are derived from high prevalence populations. Positive results in low prevalence populations should be interpreted carefully with the understanding that the likelihood of a false positive may be higher than a true positive. DEPARTMENT OF PATHOLOGY, [address] [place] [address] [facility] Permit #[id number] Ritchie Thompson M.D. Director David Aden M.D. Customer Account Executive RUN DATE: 09/14/11 [facility] NMI LIVE PAGE 2 RUN TIME: 1420 Specimen Inquiry RUN USER: INTERFACE Name: BENITA ROMANO Clau#: [id number] Status: REG REF Re09/10/11 Age/Sex: 31/F Unit#: [id number] Location: [facility]. : 80 -- -- CONTINU ED Procedure Result Verified Site > GC (N. GONORRHOEAE) RNA Final 09/14/11- 1420 ML NEGATIVE FOR NEISSERIA GONORRHOEAE rRNA A negative result does not preclude the presence of a C.trachomatis or N.gonorrhoeae infection because results are dependent on adequate specimen collection, absence of inhibitors, and sufficient rRNA to be detected. Test results may be affected by improper specimen collection, improper specimen storage, technical error, or specimen mixup. Limitations of the Procedure: The Aptima Combo 2 Assay is not intended for the evaluation of suspected sexual abuse or for other medico-legal indications. For those patients for whom a false positive result may have adverse psychosocial impact, the CDC recommends retesting by a method using an alternate technology. Therapeutic failure or success cannot be determined with the Aptima Combo 2 Assay since nucleic acid may persist following appropriate antimicrobial therapy. Results from the APTIMA Combo 2 Assay should be interpreted in conjunction with other laboraotry and clinical data available to the clinician. Performance characteristics for detecting C. trachomatis and N. gonorrhoeae are derived from high prevalence populations. Positive results in low prevalence populations should be interpreted carefully with the understanding that the likelihood of a false positive may be higher than a true positive. - [facility] State Permit #[id number] [address] [place] [address] DEPARTMENT OF PATHOLOGY, [address] [place] [address] [facility] Permit #[id number] Jack Moser M.D. Customer Account Executive 33 RUN DATE: 06/09/11 [facility] NMI LIVE PAGE 1 RUN TIME: 1227 Specimen Inquiry RUN USER: INTERFACE Name: BENITA ROMANO#: [id number] Status: REG REF Re06/07/11 Age/Sex: 31/F Unit#: [id number] Location: [facility] : 80 SPEC #: [id number] KWABENA: 06/07/11 STATUS: COMP REQ #: [id number] RECD: 06/07/[address]: Tori Lainez CNM SOURCE: URINE ENTR: 06/07/[address]: [facility]: ORDERED: URINE C S QUERIES: MEDENT REQUISITION # [id number] SPECIMEN DESCRIPTION: URINE, CLEAN CATCH ACT WKST: UR 06/09/11 #1 Procedure Result Verified Site > URINE CULTURE SENSITIVI Final 06/09/11- 1227 ML Organism 1 BETA STREP GROUP B Susceptibility testing of penicillins and other B-lactams approved by FDA for treatment of Streptococcus pyogenes (Group A Strep) and Streptococcus agalactiae (Group B Strep) is not necessary for clinical purposes and need not be done routinely, since as with vancomycin, resistant strains have not been recognized. (CLSI F500-K07;p.66) Positive isolates will be saved for one week. Please call the Microbiology Laboratory if further susceptibility testing is needed. COLONY COUNT 1-10,000 ORGANISMS/ML (FEW) Organism 2 NORMAL KAYA COLONY COUNT >100,000 ORGANISMS/ML (MANY) [facility] Permit #[id number] [address] [place] [address] DEPARTMENT OF PATHOLOGY, [address] [place] [address] [facility] Permit #[id number] Jack Moser M.D. Customer Account Executive 34 2HR GTT 1HR SERUM 1HR GLUCOSE from 0102:[id number]. 2HR GTT FAST SERUM FASTING GLUCOSE from 0102:[id number]. 2HR GTT 2HR SERUM 2HR GLUCOSE from 0102:[id number]. 35 REFERENCE RANGE: 20-50 MG/DL ABOVE FASTING 36 REFERENCE RANGE: 5-15 MG/DL ABOVE FASTING 37 NO SPECIMEN RECEIVED AT MAIN LAB. 38 Anion gap measurement may be of limited value in the presence of any alkalosis, especially in a combined acid base disorder. . 39 A metabolite of Naproxen, O-desmethylnaproxen, has been shown to interfere with the [place] method for measuring total bilirubin. Samples from patients who have taken Naproxen have shown spurious elevation in total bilirubin levels. 40 Because ethnic data is not always readily available, this report includes an eGFR for both -Americans and non- Americans. The National Kidney Disease Education Program (NKDEP) does not endorse the use of the MDRD equation for patients that are not between the ages of 18 and 70, are , have extremes of body size, muscle mass, or nutritional status, or are non- or non-. According to the National Kidney Foundation, irrespective of diagnosis, the stage of the disease is based on the level of kidney function: Stage Description GFR(mL/min/1.73 m(2)) 1 Kidney damage with normal or decreased GFR 90 2 Kidney damage with mild decrease in GFR 60-89 3 Moderate decrease in GFR 30-59 4 Severe decrease in GFR 15-29 5 Kidney failure <15 (or dialysis) 41 ICTOTEST IS A QUALITATIVE CONFIRMATORY TEST FOR BILIRUBIN. 42 RUN DATE: 05/06/11 [facility] NMI LIVE PAGE 1 RUN TIME: 1340 Specimen Inquiry RUN USER: INTERFACE Name: BENITA ROMANO Status: DEP REF Re05/04/11 Age/Sex: 31/F Unit#: [id number] Location: [facility] : 80 SPEC #: [id number] KWABENA: 05/04/11 STATUS: VINAY REQ #: [id number] RECD: 05/04/[address] [facility] [address]: Anjelica Gannon MDhleen SOURCE: URINE ENTR: 05/04/11-[address]: SPDC: ORDERED: URINE C S QUERIES: SPECIMEN DESCRIPTION: URINE, CLEAN CATCH ACT WKST: UR 05/06/11 #1 Procedure Result Verified Site > URINE CULTURE SENSITIVI Final 05/06/11- 1340 ML SCANT NORMAL URETHRAL OR PERINEAL KAYA [facility] State Permit #[id number] [address] [place] [address] DEPARTMENT OF PATHOLOGY, [address] [place] [address] [facility] Permit #[id number] Jack Moser M.D. Customer Account Executive 43 ---- RUN DATE: 04/20/11 [facility] NMI LIVE PAGE 1 RUN TIME: 2814 Specimen Inquiry RUN USER: INTERFACE -- Name: BENITA ROMANO Status: REG REF Re04/19/11 Age/Sex: 31/F Unit#: [id number] Location: [facility] : 80 -- Specimen: [id number] [facility] Spec Date: 04/19/11 [facility] Dr: Obdulia Burleson [employer] Spec Type: CYTOLOGY Received: 04/20/11-1222 Copies to: SOURCE ECTOCERVICAL/ENDOCERVICAL Thin Prep with Reflex HPV Test PATIENT INFORMATION ACTUAL COLLECTION DATE: 04/19/11 ? Yes LAST MENSTRUAL PERIOD: 11/27/10 PATIENT HISTORY: Unknown ADEQUACY OF SPECIMEN Satisfactory for evaluation * Transformation zone component identified * DIAGNOSIS NEGATIVE FOR INTRAEPITHELIAL LESION OR MALIGNANCY * This Pap test was evaluated with the assistance of the ThinPrep Pap Test Imaging System. The Pap Smear is a screening test designed to aid in the detection of premalign ant and malignant conditions of the uterine cervix. It is not a diagnostic procedure a nd should not be used as the sole means of detecting cervical cancer. Both false- positiv e and false-negative reports do occur. Depending on your risk status, a Pap smear yeni uld be obtained and evaluated every one to three years. Final Interpretation electronically signed by: Ron MELTON([facility]) 04/20/11 143 1 -- -- DEPARTMENT OF PATHOLOGY, [address] [place] [address] [facility] Permit #[id number] Jack Moser M.D. Compensator cesar -- 44 RUN DATE: 04/22/11 [facility] NMI LIVE PAGE 1 RUN TIME: 1407 Specimen Inquiry RUN USER: INTERFACE Name: BENITA ROMANO Status: REG REF Re04/19/11 Age/Sex: 31/F Unit#: [id number] Location: [facility] : 80 SPEC #: [id number] KWABENA: 04/19/11 STATUS: COMP REQ #: [id number] RECD: 04/20/[address]: Obdulia Pedroza CNP SOURCE: THIN PREP ENTR: 04/20/[address]: JULIAC: ORDERED: GC/CHL APTIMA QUERIES: MEDENT REQUISITION # [id number] ACT WKST: GCCHL 04/22/11 #1 Procedure Result Verified Site > CHLAMYDIA TRACHOMATIS RNA Final 04/22/11- 1408 ML NEGATIVE FOR CHLAMYDIA TRACHOMATIS rRNA A negative result does not preclude the presence of a C.trachomatis or N.gonorrhoeae infection because results are dependent on adequate specimen collection, absence of inhibitors, and sufficient rRNA to be detected. Test results may be affected by improper specimen collection, improper specimen storage, technical error, or specimen mixup. Limitations of the Procedure: The Aptima Combo 2 Assay is not intended for the evaluation of suspected sexual abuse or for other medico-legal indications. For those patients for whom a false positive result may have adverse psychosocial impact, the CDC recommends retesting by a method using an alternate technology. Therapeutic failure or success cannot be determined with the Aptima Combo 2 Assay since nucleic acid may persist following appropriate antimicrobial therapy. Results from the APTIMA Combo 2 Assay should be interpreted in conjunction with other laboraotry and clinical data available to the clinician. Performance characteristics for detecting C. trachomatis and N. gonorrhoeae are derived from high prevalence populations. Positive results in low prevalence populations should be interpreted carefully with the understanding that the likelihood of a false positive may be higher than a true positive. DEPARTMENT OF PATHOLOGY, [address] [place] [address] [facility] Permit #[id number] Ritchie Thompson M.D. Director David Aden M.D. Customer Account Executive RUN DATE: 04/22/11 [facility] NMI LIVE PAGE 2 RUN TIME: 1408 Specimen Inquiry RUN USER: INTERFACE Name: BENITA ROMANO Accmanas#: [id number] Status: REG REF Re04/19/11 Age/Sex: 31/F Unit#: [id number] Location: [facility] : 80 -- -- CONTINU ED Procedure Result Verified Site > GC (N. GONORRHOEAE) RNA Final 04/22/11- 1408 ML NEGATIVE FOR NEISSERIA GONORRHOEAE rRNA A negative result does not preclude the presence of a C.trachomatis or N.gonorrhoeae infection because results are dependent on adequate specimen collection, absence of inhibitors, and sufficient rRNA to be detected. Test results may be affected by improper specimen collection, improper specimen storage, technical error, or specimen mixup. Limitations of the Procedure: The Aptima Combo 2 Assay is not intended for the evaluation of suspected sexual abuse or for other medico-legal indications. For those patients for whom a false positive result may have adverse psychosocial impact, the CDC recommends retesting by a method using an alternate technology. Therapeutic failure or success cannot be determined with the Aptima Combo 2 Assay since nucleic acid may persist following appropriate antimicrobial therapy. Results from the APTIMA Combo 2 Assay should be interpreted in conjunction with other laboraotry and clinical data available to the clinician. Performance characteristics for detecting C. trachomatis and N. gonorrhoeae are derived from high prevalence populations. Positive results in low prevalence populations should be interpreted carefully with the understanding that the likelihood of a false positive may be higher than a true positive. [facility] Permit #[id number] [address] [place] [address] DEPARTMENT OF PATHOLOGY, [address] [place] [address] [facility] Permit #[id number] Jack Moser M.D. Customer Account Executive 45 RUN DATE: 04/22/11 [facility] NMI LIVE PAGE 1 RUN TIME: 1010 Specimen Inquiry RUN USER: INTERFACE Name: BENITA ROMANO Status: REG REF Re04/19/11 Age/Sex: 31/F Unit#: [id number] Location: [facility] : 80 SPEC #: [id number] KWABENA: 04/19/11 STATUS: COMP REQ #: [id number] RECD: 04/20/[address]: Obdulia Pedroza CNP SOURCE: URINE ENTR: 04/20/[address]: SPDESC: ORDERED: URINE C S COMMENTS: SPECIMEN DESCRIPTION: URINE, CLEAN CATCH QUERIES: MEDENT MEDENT REQUISITION # [id number] ACT WKST: UR 04/22/11 #1 Procedure Result Verified Site > URINE CULTURE SENSITIVI Final 04/22/11- 1009 ML Organism 1 BETA STREP GROUP B Susceptibility testing of penicillins and other B-lactams approved by FDA for treatment of Streptococcus pyogenes (Group A Strep) and Streptococcus agalactiae (Group B Strep) is not necessary for clinical purposes and need not be done routinely, since as with vancomycin, resistant strains have not been recognized. (CLSI B854-B75;p.66) Positive isolates will be saved for one week. Please call the Microbiology Laboratory if further susceptibility testing is needed. COLONY COUNT 10-25,000 ORGANISMS/ML (MODERATE) Organism 2 NORMAL KAYA COLONY COUNT 1-10,000 ORGANISMS/ML (FEW) - [facility] State Permit #[id number] [facility] [address] DEPARTMENT OF PATHOLOGY, [facility] [employer] [place], [place] [address] [facility] Permit #[id number] Ritchie Thompson M.D. Director David Aden M.D. Customer Account Executive 46 SPECIMEN CONTAINS NORMAL URETHRAL OR PERINEAL KAYA AND DOES NOT SUGGEST URINARY TRACT INFECTION 47 THE URINE SPECIMEN WAS TESTED AT THE LISTED CUTOFFS: DRUG CLASS TEST LEVEL (NG/ML) AMPHETAMINES 300 BARBITUATES 200 BENZODIAZEPINE METABOLITES 200 COCAINE METABOLITES 300 CANNABINOIDS 25 OPIATES 200 PCP 25 THIS IS A SCREENING PROCEDURE. POSITIVE RESULTS ARE NOT CONFIRMED. SPECIMEN WAS RECEIVED WITHOUT CHAIN OF CUSTODY. RESULTS SHOULD BE USED FOR MEDICAL PURPOSES ONLY. . 48 FINAL INTERPRETATION: No HIV antibody is detected. . This information has been disclosed to you from confidential records which are protected by [place] law. State law prohibits you from making further disclosure of this information without the specific written consent of the person to whom it pertains, or as otherwise permitted by law. Any unauthorized further disclosure in violation of state law may result in a fine or skilled nursing sentence or both. General authorization for the release of medical or other information is not, except in limited circumstances set forth in Part 63, Title 10, of [place], sufficient authorization for further disclosure. Disclosure of confidential HIV information that occurs as the result of a general authorization for the release of medical or other information will be in violation of the state law and may result in a fine or a skilled nursing sentence. . 49 EQUIVOCAL:SUGGEST RETEST WITH ANOTHER SAMPLE IN 14-21 DAYS 50 FINAL: NEGATIVE FOR GROUP B STREPTOCOCCUS 51 FINAL: NO GROWTH DAY 2 (<1,000 CFU/mL) 52 . A negative result does not preclude the presence of a C.trachomatis or N.gonorrhoeae infection because results are dependent on adequate specimen collection, absence of inhibitors, and sufficient rRNA to be detected. Test results may be affected by improper specimen collection, improper specimen storage, technical error, or specimen mixup. . 53 . A negative result does not preclude the presence of a C.trachomatis or N.gonorrhoeae infection because results are dependent on adequate specimen collection, absence of inhibitors, and sufficient rRNA to be detected. Test results may be affected by improper specimen collection, improper specimen storage, technical error, or specimen mixup. . 54 FINAL INTERPRETATION: No HIV antibody is detected. . This information has been disclosed to you from confidential records which are protected by [facility] law. State law prohibits you from making further disclosure of this information without the specific written consent of the person to whom it pertains, or as otherwise permitted by law. Any unauthorized further disclosure in violation of state law may result in a fine or skilled nursing sentence or both. General authorization for the release of medical or other information is not, except in limited circumstances set forth in Part 63, Title 10, of [facility], sufficient authorization for further disclosure. Disclosure of confidential HIV information that occurs as the result of a general authorization for the release of medical or other information will be in violation of the state law and may result in a fine or a skilled nursing sentence. . 55 SPECIMEN RECEIVED IS TOO OLD FOR ACCURATE DIFFERENTIAL. IF DIFFERENTIAL IS DESIRED, PLEASE RESUBMIT A FRESH SPECIMEN LESS THAN 24 HOURS OLD. 56 EQUIVOCAL:SUGGEST RETEST WITH ANOTHER SAMPLE IN 14-21 DAYS 57 FINAL: NO GROWTH DAY 2 (<1,000 CFU/mL) Procedures Date CPT Code Description Status 07/01/2015 94905 Echography Transvaginal Completed 02/07/2015 26075 Injection Intramuscular Or Subcutaneous Completed 05/13/2014 35376 Echography Transvaginal Completed 07/11/2012 42962 Endometrial Ablation,Hysteroscopy Completed 03/30/2012 65580 Echography Transvaginal Completed 10/05/2011 71716 Laparoscopy W/Wo Transection W/Fulguration Of Oviducts Completed 08/09/2011 04450 Routine OB Care After Previous Delivery Completed 04/16/2011 22729 Echography Uterus Complete Completed 10/10/2008 76686 Vaginal Delivery After Previous Delivery Completed Care 10/05/2008 62251 Antepartum Care 4-6 Visits Completed 09/03/2008 66893 Echography Uterus Complete Completed 09/03/2008 66058 Echography Uterus Complete Completed Encounters Type Date Location Provider CPT E/M Dx Office Visit 11/08/2017 11:00a [facility] Office Jonnie Black M.D. 73120 Z01.419 Z12.4 Office Visit 11/28/2015 1:20p [facility] Office Jonnie Black M.D. 08285 N80.1 Office Visit 07/01/2015 2:00p [facility] Office Jonnie Black M.D. 22764 N83.29 Office Visit 06/10/2015 1:00p [facility] [place] 35544 R30.0 N76.0 Office Visit 12/31/2014 10:40a [facility] Jonnie Black M.D. 87092 789.9 617.1 Office Visit 05/13/2014 9:40a [facility] [place]C 95876 620.2 Office Visit 05/07/2014 10:20a [facility] [place] 53205 616.10 789.9 620.2 Office Visit 03/05/2014 2:00p [facility] [place]C 39788 616.10 788.1 Office Visit 12/19/2013 2:45p [facility] Dennise Stanton, FILI 67796 616.10 Office Visit 05/01/2013 2:00p [facility] Dennise Stanton, [place]I 61807 788.63 Office Visit 10/05/2012 11:00a [facility] [place] [address] V72.31 V76.2 616.10 V76.41 Office Visit 09/04/2012 8:00a [facility] Office Jonnie Black M.D. 09079 789.9 Office Visit 07/03/2012 9:00a [facility] Office Jonnie Black M.D. 24587 V72.83 V74.5 789.9 626.2 Office Visit 06/13/2012 10:30a [facility] Dennise Stanton, FILI 10356 626.4 788.1 625.0 Office Visit 03/30/2012 1:40p [facility] Office Jonnie Black M.D. 19812 625.0 626.2 Office Visit 02/16/2012 1:20p [facility] Jonnie Black M.D. 55570 616.10 626.2 Office Visit 05/04/2011 11:08a [place] [address] V23.9 787.01 Office Visit 04/14/2011 3:03p [place] [address] 789.9 V23.9 Office Visit 12/03/2008 3:20p [facility] Melida Walsh M.D. 69041 626.8 788.1 Office Visit 11/27/2008 9:20a [facility] Brandon Kelly M.D. 18873 626.8 Office Visit 11/13/2008 10:40a [facility] ELMER Wilson 86954 616.10 Office Visit 10/04/2008 1:20p [facility] Jonnie Black M.D. 55114 V72.83 V22.1 Office Visit 09/03/2008 1:20p [facility] Mumtaz Adam M.D. 28021 V28.3 V22.1 v22.1 616.10 Plan of Care 11/28/2015 - Jonnie Black M.D.N80.1 Endometriosis of ovaryComments:pt and idiscussed suppresion with norethindronerx hydrocodone for now as well as starting progestinfor suppresionFollow up:2-3 weeks
[2018-01-26 12:09] VITALS: BP 107/69
--- NOTE | 2018-01-26 12:26 | UC ---
Upper Extremity HPI - HPI Summary HPI Summary: Pt c/o sudden on set of intermittent right upper arm pain that is intermittent, is not related to trauma and denies significant repetitive use. - History of Current Complaint Chief Complaint: UCUpperExtremity Stated Complaint: RIGHT UPPER ARM PAIN Time Seen by Provider: 01/26/18 12:02 Hx Obtained From: Patient Hx Last Menstrual Period: s/p uterine ablation ?: No Onset/Duration: Sudden Onset, Lasting Days Severity Initially: Moderate Severity Currently: Moderate Pain Intensity: 7 Location Of Pain: Is Discrete @ - right upper arm/bicep Character: Sharp Aggravating Factor(s): Movement Alleviating Factor(s): Nothing Associated Signs And Symptoms: Positive: Negative Related History: Dominant Hand Right - Risk Factors Non-Orthopedic Risk Factor: Negative DVT Risk Factors: Negative Septic Arthritis Risk Factor: Negative - Allergies/Home Medications Allergies/Adverse Reactions: Allergies Allergy/AdvReac Type Severity Reaction Status Date / Time No Known Allergies Allergy Verified 01/26/18 12:03 Home Medications: Home Medications Acetaminophen TAB* [Tylenol TAB*] 650 mg PO ONCE 01/26/18 [History Confirmed ] Dicyclomine CAP* [Bentyl CAP*] 10 mg PO TID 01/26/18 [History Confirmed 01/26/18 ] Ibuprofen TAB* [Advil TAB*] 400 mg PO Q8H PRN 01/26/18 [History Confirmed ] Methyl Salicylate/Menthol [Salonpas Patch] 1 applic TOPICAL SEE INSTRUCTIONS PRN 01/26/18 [History Confirmed 01/26/18] PMH/Surg Hx/FS Hx/Imm Hx Previously Healthy: Yes - Surgical History Surgical History: Yes Surgery Procedure, Year, and Place: , tubal ligation, uterine ablation - Family History Known Family History: Positive: Other - NONCONTRIBUTORY Negative: Hypertension, Diabetes Family History: hypothyrodism - Social History Occupation: Employed Full-time Lives: With Family Alcohol Use: Rare Substance Use Type: None Smoking Status (MU): Heavy Every Day Tobacco Smoker Type: Cigarettes Amount Used/How Often: 1 PPD Length of Time of Smoking/Using Tobacco: Since Age 11 Have You Smoked in the Last Year: Yes Household Exposure Type: Cigarettes - Immunization History Most Recent Influenza Vaccination: no Most Recent Pneumonia Vaccination: 2016 Review of Systems Constitutional: Negative Skin: Negative Eyes: Negative ENT: Negative Respiratory: Negative Cardiovascular: Negative Gastrointestinal: Negative Genitourinary: Negative Motor: Negative Neurovascular: Negative Musculoskeletal: Myalgia Neurological: Negative Psychological: Negative Is Patient Immunocompromised?: No All Other Systems Reviewed And Are Negative: Yes Physical Exam Triage Information Reviewed: Yes Appearance: Well-Appearing Vital Signs: Initial Vital Signs Temp 98.6 F 01/26/18 11:59 Pulse 96 01/26/18 11:59 Resp 16 01/26/18 11:59 BP 107/69 01/26/18 11:59 Pulse Ox 100 01/26/18 11:59 Eye Exam: Normal ENT Exam: Normal Dental Exam: Normal Neck exam: Normal Respiratory: Positive: No respiratory distress Musculoskeletal Exam: Normal Musculoskeletal: Positive: Strength Intact, ROM Intact, No Edema Neurological Exam: Normal Psychological Exam: Normal Skin Exam: Normal Upper Extremity Course/Dx - Differential Dx/Diagnosis Differential Diagnosis/HQI/PQRI: Arthritis, Strain, Sprain Provider Diagnoses: idiopathic right upper arm pain Discharge - Sign-Out/Discharge Documenting (check all that apply): Patient Departure All imaging exams completed and their final reports reviewed: No Studies - Discharge Plan Condition: Stable Disposition: HOME Patient Education Materials: Arm Pain (ED) Referrals: Gerhard Galvez MD [Medical Doctor] - If Needed Navneet Lyon MD [Primary Care Provider] - If Needed - Billing Disposition and Condition Condition: STABLE Disposition: Home
== END 2018-01-26 12:33 | disposition home or self-care (01) ==
LOC: UCCORT 11:49
DX: M79.621 Pain in right upper arm (principal); F17.210 Nicotine dependence, cigarettes, uncomplicated
CPT/HCPCS: 99211; G0463